=== PATIENT | male | born 1950 | race Caucasian/White ===

== ENCOUNTER 2020-12-13 00:15 | Observation (INO) | payer MEDICARE ==
[2020-12-13] MEDS ORDERED: MORPHINE 2 MG/1 ML INJ IV ONE (00:32)
--- NOTE | 2020-12-13 00:33 | Emergency Department Report ---
ED Chest Pain HPI - General Chief Complaint: Chest Pain Stated Complaint: CHEST PAIN PUI?: No Time Seen by Provider: 12/13/20 00:30 Source: patient, EMS Mode of arrival: Ambulatory Limitations: No Limitations - History of Present Illness Initial Comments: Patient is a 70-year-old male who presents emergency room with complaints of chest pain, shortness of breath. Patient states his chest pain is crushing patient states that it is in left chest. Patient dates nonradiating. Patient also complains of nausea and shortness of breath. Patient states his chest pain shortness breath better with rest and worse with exertion. Patient denies fever and chills. Patient denies cough. Patient denies recent travel. Patient denies recent international travel. Patient denies exposure to the novel coronavirus. Patient denies sick contacts. Patient denies fever and chills. Patient denies cough. Patient denies diarrhea. Patient denies coming in contact with anybody with symptoms of the novel coronavirus. Patient is a past medical history of hyperlipidemia and hypertension. Patient states he also had an SD in the past. MD Complaint: chest pain -: Sudden Onset: during rest Pain Location: left chest Severity: severe Severity scale (0 -10): 5 Quality: sharp Consistency: constant Improves With: rest Worsens With: exertion re: nausea, dyspnea, sense of impending doom. denies: vomting, diaphoresis Other Symptoms: denies: cough, fever, syncope, rash, acid taste in mouth, leg swelling, palpitations, burping Treatments Prior to Arrival: aspirin, nitroglycerin, oxygen Aspirin use within the Past 7 Days: (1) Yes - Related Data On Oral Contraceptives: No Home Medications Medication Instructions Recorded Confirmed Last Taken Allopurinol 100 mg PO QDAY 09/30/15 09/30/15 09/29/15 Amlodipine Besylate 10 mg PO QDAY 09/30/15 09/30/15 09/29/15 Aspirin EC [Halfprin EC] 81 mg PO QDAY 09/30/15 09/30/15 09/29/15 ISOSORBIDE MONOnitrate [Imdur ER] 30 mg PO DAILY 09/30/15 09/30/15 09/29/15 Insulin Aspart Protam & Aspart 35 - 45 units SUB-Q TID 03/30/16 03/30/16 03/29/16 [NovoLOG Mix 70-30 Flexpen] Insulin Glargine,Hum.rec.anlog 25 unit SUB-Q QHS 09/30/15 09/30/15 09/29/15 [Lantus Solostar] Nitroglycerin [Nitrostat] 0.4 mg SL Q5MIN PRN 09/30/15 09/30/15 Unknown Olmesartan (Nf) [Benicar] 20 mg PO QDAY 09/30/15 09/30/15 09/29/15 Rosuvastatin Calcium [Crestor] 10 mg PO QDAY 09/30/15 09/30/15 09/29/15 Allergies Allergy/AdvReac Type Severity Reaction Status Date / Time No Known Allergies Allergy Verified 12/13/20 00:40 Heart Score - HEART Score History: Moderately suspicious EKG: Non-specific Age: > 65 Risk factors: > 3 risk factors or hx of atherosclerotic disease Troponin: < normal limit HEART Score: 6 - EKG Read Time Time EKG Completed: 00:56 EKG Read Time: 00:59 ED Review of Systems ROS: Stated complaint: CHEST PAIN Other details as noted in HPI Constitutional: denies: chills, fever Eyes: denies: eye pain, eye discharge, vision change ENT: denies: ear pain, throat pain Respiratory: shortness of breath. denies: cough, wheezing Cardiovascular: as per HPI, chest pain. denies: palpitations Endocrine: no symptoms reported Gastrointestinal: denies: abdominal pain, nausea, diarrhea Genitourinary: denies: urgency, dysuria Musculoskeletal: denies: back pain, joint swelling, arthralgia Skin: denies: rash, lesions Neurological: denies: headache, weakness, paresthesias Psychiatric: denies: anxiety, depression Hematological/Lymphatic: denies: easy bleeding, easy bruising ED Past Medical Hx - Past Medical History Previous Medical History?: Yes Hx Hypertension: Yes Hx Heart Attack/AMI: Yes (1997, 2000) Hx Diabetes: Yes Hx Arthritis: Yes Hx Kidney Stones: Yes Hx Asthma: Yes Hx HIV: No - Surgical History Past Surgical History?: Yes Hx Coronary Stent: No Hx Cholecystectomy: Yes - Family History Family history: no significant - Social History Smoking Status: Former Smoker Substance Use Type: None - Medications Home Medications: Home Medications Medication Instructions Recorded Confirmed Last Taken Type Allopurinol 100 mg PO QDAY 09/30/15 09/30/15 09/29/15 History Amlodipine Besylate 10 mg PO QDAY 09/30/15 09/30/15 09/29/15 History Aspirin EC [Halfprin EC] 81 mg PO QDAY 09/30/15 09/30/15 09/29/15 History ISOSORBIDE MONOnitrate [Imdur ER] 30 mg PO DAILY 09/30/15 09/30/15 09/29/15 History Insulin Aspart Protam & Aspart 35 - 45 units SUB-Q TID 09/30/15 09/30/15 09/29/15 History [NovoLOG Mix 70-30 Flexpen] Insulin Glargine,Hum.rec.anlog 25 unit SUB-Q QHS 09/30/15 09/30/15 09/29/15 History [Lantus Solostar] Nitroglycerin [Nitrostat] 0.4 mg SL Q5MIN PRN 09/30/15 09/30/15 Unknown History Olmesartan (Nf) [Benicar] 20 mg PO QDAY 09/30/15 09/30/15 09/29/15 History Rosuvastatin Calcium [Crestor] 10 mg PO QDAY 09/30/15 09/30/15 09/29/15 History ED Physical Exam - General Limitations: No Limitations General appearance: alert, in no apparent distress - Head Head exam: Present: atraumatic, normocephalic - Eye Eye exam: Present: normal appearance - ENT ENT exam: Present: mucous membranes moist - Neck Neck exam: Present: normal inspection - Respiratory Respiratory exam: Present: normal lung sounds bilaterally. Absent: respiratory distress, wheezes, rales - Cardiovascular Cardiovascular Exam: Present: regular rate, normal rhythm. Absent: systolic murmur, diastolic murmur, rubs, gallop - GI/Abdominal GI/Abdominal exam: Present: soft, normal bowel sounds. Absent: distended, tenderness, guarding - Rectal Rectal exam: Present: deferred - Extremities Exam Extremities exam: Present: normal inspection - Back Exam Back exam: Present: normal inspection - Neurological Exam Neurological exam: Present: alert, oriented X3 - Psychiatric Psychiatric exam: Present: normal affect, normal mood - Skin Skin exam: Present: warm, dry, intact, normal color. Absent: rash ED Course Vital Signs 12/13/20 12/13/20 12/13/20 00:36 01:00 01:30 Temperature 98.8 F Pulse Rate 52 L 62 42 L Respiratory 12 21 15 Rate Blood Pressure 136/76 147/75 145/76 Blood Pressure 136/76 [Right] O2 Sat by Pulse 97 97 95 Oximetry 12/13/20 12/13/20 12/13/20 02:00 02:30 03:00 Temperature Pulse Rate 42 L 54 L 43 L Respiratory 14 24 15 Rate Blood Pressure 140/71 140/71 151/77 Blood Pressure [Right] O2 Sat by Pulse 94 98 98 Oximetry 12/13/20 12/13/20 12/13/20 03:30 04:00 04:30 Temperature Pulse Rate 39 L 42 L 46 L Respiratory 14 14 14 Rate Blood Pressure 145/85 156/84 142/83 Blood Pressure [Right] O2 Sat by Pulse 96 96 98 Oximetry 12/13/20 05:00 Temperature Pulse Rate 48 L Respiratory Rate Blood Pressure 142/83 Blood Pressure [Right] O2 Sat by Pulse 98 Oximetry - Reevaluation(s) Reevaluation #1: Patient states his pain is much better. Patient states is a 2 out of 10. Patient states that shortness of breath has resolved. Patient will have a CTA to rule out a PE. Patient agrees with plan of care. 12/13/20 02:13 Reevaluation #2: I discussed all results with patient. I discussed plan of care with patient. Patient agrees with plan of care and admission. Patient to be admitted to the hospitalist service. 12/13/20 04:13 - Consultations Consultation #1: Hospitalist consulted for admission. Hospitalist to admit patient. 12/13/20 04:13 ED Medical Decision Making - Lab Data Result diagrams: 12/13/20 00:34 12/13/20 00:34 - EKG Data -: EKG Interpreted by Me EKG shows normal: sinus rhythm, axis, intervals, QRS complexes, ST-T waves Rate: bradycardia - Radiology Data Radiology results: report reviewed, image reviewed interpreted by me: Chest x-ray: No pneumonia, no pneumothorax, no foreign body, no osseous findings, no acute findings CTA results are reviewed and shows no acute findings and no PE. - Medical Decision Making Patient is a 70-year-old male presents emergency room with complaints of chest pain, shortness of breath and diaphoresis and nausea. Patient has a past history of hypertension, hyperlipidemia and SD. Patient is high risk for ACS. Patient EKG shows a normal sinus bradycardia with no ST changes. Patient's chest x-ray shows no acute findings. I personally reviewed the EKG and a chest x-ray. Patient had labs done which were essentially unremarkable save for renal insufficiency and elevated D-dimer. Initial troponin was high normal limit and the repeat came back as elevated. Patient's renal function was not contraindicated for his CT dye. Patient benefits outweigh the risk for CT dye. Patient CTA was done to rule out a PE since the D-dimer was elevated. Patient's CTA was negative for acute findings and PE. Patient was placed on a heparin drip for NSTEMI. Patient admitted to the hospital service for further evaluation treatment and rule out ACS. Critical care time documented due to the multiple reassessments, prolonged time at the bedside, interpretation of diagnostics and labs. - Differential Diagnosis PE, ACS, chest pain, shortness of breath, diaphoresis, nausea Critical Care Time: Yes Critical care time in (mins) excluding proc time.: 35 Critical care attestation.: If time is entered above; I have spent that time in minutes in the direct care of this critically ill patient, excluding procedure time. Critical Care Time: 35 minutes ED Disposition Clinical Impression: SOB (shortness of breath), Renal insufficiency, Elevated d-dimer, NSTEMI (non- ST elevated myocardial infarction) Chest pain Qualifiers: Chest pain type: unspecified Qualified Code(s): R07.9 - Chest pain, unspecified Disposition: OP ADMIT IP TO THIS HOSP Is pt being admited?: Yes Does the pt Need Aspirin: No Condition: Critical Time of Disposition: 04:16
[2020-12-13 00:54] LABS: Basophils % (Auto) 0.5 % (0.0-1.8); Eosinophils # (Auto) 0.3 K/mm3 (0.0-0.4); Eosinophils % (Auto) 6.6 % (0.0-4.3); Hematocrit 37.3 % (35.5-45.6); Hemoglobin 12.6 gm/dl (11.8-15.2); Lymphocytes % (Auto) 21.1 % (13.4-35.0); Mean Corpuscular HGB Conc 34 % (32-34); Mean Corpuscular Volume 86 fl (84-94); Monocytes # (Auto) 0.6 K/mm3 (0.0-0.8); Monocytes % (Auto) 12.9 % (0.0-7.3); Platelet Count 112 K/mm3 (140-440); Red Blood Count 4.34 M/mm3 (3.65-5.03); Red Cell Distribution Width 16.7 % (13.2-15.2)
[2020-12-13 01:06] LABS: INR 0.98 (0.87-1.13); Partial Thromboplastin Time 27.6 Sec. (24.2-36.6)
[2020-12-13 01:21] LABS: Albumin 3.2 g/dL (3.9-5); Calcium 9.1 mg/dL (8.4-10.2)
--- NOTE | 2020-12-13 01:51 | XRay Report ---
CHEST 1 VIEW, 12/13/2020 12:29 AM CLINICAL INFORMATION/INDICATION: Chest pain COMPARISON: None. FINDINGS: SUPPORT DEVICES: None. HEART: The cardiac silhouette is normal in size. LUNGS/PLEURA: The lungs are clear of focal airspace disease or significant pleural effusion. ADDITIONAL FINDINGS: No additional acute findings. IMPRESSION: 1. No evidence of acute cardiopulmonary process. Signer Name: Keri Daugherty MD Signed: 12/13/2020 1:47 AM Workstation Name: [id number]
--- NOTE | 2020-12-13 04:07 | Cat Scan Report ---
CTA CHEST WITH IV CONTRAST INDICATION: Shortness of breath. TECHNIQUE: Axial CT images were obtained through the chest after injection of IV contrast. Coronal oblique 2-D reconstruction images were produced. 3 plane MIP reconstruction images were produced at an [employer] workstation. All CTs at this facility utilize dose reduction techniques including automated expos ure control, iterative reconstruction and weight based dosing when appropriate to reduce patient radi ation dose to as low as reasonable achievable. COMPARISON: Chest radiograph, 12/13/2020 FINDINGS: No filling defects are visualized within the central or segmental pulmonary arteries to suggest pulmo nary embolism. The heart is normal in size. The thoracic aorta is normal in caliber. Evaluation of th e lung parenchyma demonstrates no focal airspace disease or pleural effusion. Limited imaging of the upper abdomen demonstrates no evidence of acute abnormality. There is a diffus robi nodular contour of the liver. The gallbladder has been removed. Multiple upper abdominal varices are noted. Bones and soft tissues: Evaluation of bony and soft tissue structures demonstrates no acute abnormali ty. IMPRESSION: 1. No evidence of pulmonary embolism or acute parenchymal process. 2. 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 Signer Name: Keri Daugherty MD Signed: 12/13/2020 4:02 AM Workstation Name: [id number]
[2020-12-13] MEDS ORDERED: HEPARIN 10,000 UNITS/10 ML VIAL IV ONE ×2 (04:19→10:00)
--- NOTE | 2020-12-13 04:28 | History and Physical Report ---
History of Present Illness Date of examination: 12/13/20 Date of admission: 12/13/20 Chief complaint: chest pain History of present illness: Patient is a 70-year-old male who presents emergency room with complaints of chest pain, shortness of breath. Patient states his chest pain is crushing patient states that it is in left chest. Patient dates nonradiating. Patient also complains of nausea and shortness of breath. Patient states his chest pain shortness breath better with rest and worse with exertion. Patient denies fever and chills. Patient denies cough. ED work-up WBC 4.9, hemoglobin 12.6, platelets 112, D-dimer 50286.89, creatinine 1.5, serum glucose 235, troponin 0 0.030, cholesterol 224. Patient seen in ED at bedside. Patient alert oriented x3. Patient denies tobacco use and illicit drug use but admits alcohol use. Patient reports chest pain pain level 6/10. CTA of the chest done to rule out pulmonary embolismnegative for PE. Chest x- ray done no acute findings. Due to elevated troponin patient is started on heparin drip. Bilateral leg ultrasound ordered. Reviewed lab, medication record, and vital signs. Past History Past Medical History: diabetes, hypertension, hyperlipidemia Social history: lives with family, alcohol abuse Family history: hypertension Medications and Allergies Allergies Allergy/AdvReac Type Severity Reaction Status Date / Time No Known Allergies Allergy Verified 12/13/20 00:40 Home Medications Medication Instructions Recorded Confirmed Last Taken Type Allopurinol 100 mg PO QDAY 09/30/15 09/30/15 09/29/15 History Amlodipine Besylate 10 mg PO QDAY 09/30/15 09/30/15 09/29/15 History Aspirin EC [Halfprin EC] 81 mg PO QDAY 09/30/15 09/30/15 09/29/15 History ISOSORBIDE MONOnitrate [Imdur ER] 30 mg PO DAILY 09/30/15 09/30/15 09/29/15 History Insulin Aspart Protam & Aspart 35 - 45 units SUB-Q TID 09/30/15 09/30/15 0 09/29/15 History [NovoLOG Mix 70-30 Flexpen] Insulin Glargine,Hum.rec.anlog 25 unit SUB-Q QHS 09/30/15 09/30/15 09/29/15 History [Lantus Solostar] Nitroglycerin [Nitrostat] 0.4 mg SL Q5MIN PRN 09/30/15 09/30/15 Unknown History Olmesartan (Nf) [Benicar] 20 mg PO QDAY 09/30/15 09/30/15 09/29/15 History Rosuvastatin Calcium [Crestor] 10 mg PO QDAY 09/30/15 09/30/15 09/29/15 History Active Meds: Active Medications Heparin Sodium/Sodium Chloride (Heparin/ 0.45% Nacl-25,000 Unit/500 Ml) 25,000 unit in 500 mls @ 32.659 mls/hr IV TITRATE ARUN; Protocol Review of Systems Ears, nose, mouth and throat: no epistaxis, no bleeding gums Cardiovascular: chest pain Respiratory: no wheezing Gastrointestinal: abdominal pain Rectal: no itching, no hemorrhoids Integumentary: no rash, no pruritis Neurological: no head injury, no transient paralysis Psychiatric: no suicidal ideation, no hallucinations Hematologic/Lymphatic: no easy bruising, no easy bleeding Allergic/Immunologic: no urticaria Exam - Constitutional Vitals: Temp Pulse Resp BP Pulse Ox 98.8 F 42 L 14 156/84 96 12/13/20 00:36 12/13/20 04:00 12/13/20 04:00 12/13/20 04:00 12/13/20 04:00 General appearance: Present: mild distress, obese - EENT Eyes: Present: PERRL ENT: hearing intact, clear oral mucosa - Neck Neck: Present: supple, normal ROM - Respiratory Respiratory effort: normal Respiratory: bilateral: CTA - Cardiovascular Heart rate: 42 Heart Sounds: Present: S1 & S2. Absent: rub, click - Extremities Extremities: pulses symmetrical, No edema Peripheral Pulses: within normal limits - Abdominal General gastrointestinal: Present: soft, non-tender, non-distended, normal bowel sounds Male genitourinary: Present: normal - Integumentary Integumentary: Present: clear, warm, dry - Musculoskeletal Musculoskeletal: gait normal, strength equal bilaterally - Psychiatric Psychiatric: appropriate mood/affect, intact judgment & insight, cooperative - Neurologic Neurologic: CNII-XII intact, moves all extremities - Allied Health Allied health notes reviewed: nursing HEART Score - HEART Score EKG: Non-specific Age: > 65 Risk factors: > 3 risk factors or hx of atherosclerotic disease Troponin: Troponin T 0.030 ng/mL (0.00-0.029) H 12/13/20 03:38 Troponin: < normal limit Results - Labs CBC & Chem 7: 12/13/20 00:34 12/13/20 00:34 Labs: Abnormal lab results 12/13/20 12/13/20 12/13/20 Range/Units 00:34 00:34 00:34 RDW 16.7 H (13.2-15.2) % Plt Count 112 L (140-440) K/mm3 [place] % (Auto) 12.9 H (0.0-7.3) % Eos % (Auto) 6.6 H (0.0-4.3) % Lymph # (Auto) 1.0 L (1.2-5.4) K/mm3 D-Dimer 1073.89 H (0-234) ng/mlDDU BUN 31 H (9-20) mg/dL Creatinine 1.5 H (0.8-1.3) mg/dL Glucose 235 H (75-100) mg/dL Troponin T (0.00-0.029) ng/mL Total Protein 6.1 L (6.3-8.2) g/dL Albumin 3.2 L (3.9-5) g/dL 12/13/20 Range/Units 03:38 RDW (13.2-15.2) % Plt Count (140-440) K/mm3 [place] % (Auto) (0.0-7.3) % Eos % (Auto) (0.0-4.3) % Lymph # (Auto) (1.2-5.4) K/mm3 D-Dimer (0-234) ng/mlDDU BUN (9-20) mg/dL Creatinine (0.8-1.3) mg/dL Glucose (75-100) mg/dL Troponin T 0.030 H (0.00-0.029) ng/mL Total Protein (6.3-8.2) g/dL Albumin (3.9-5) g/dL Assessment and Plan - Patient Problems (1) NSTEMI (non-ST elevated myocardial infarction) Current Visit: Yes Status: Acute Plan to address problem: Continue heparin drip Echocardiogram and consult cardiology Aspirin, statin, beta-david, oxygen supplements if needed (2) Chest pain Current Visit: Yes Status: Acute Qualifiers: Chest pain type: unspecified Qualified Code(s): R07.9 - Chest pain, unspecified Plan to address problem: Sublingual nitrate as needed echo and follow-up with results Chest x-ray done no acute finding (3) Elevated d-dimer Current Visit: Yes Status: Acute Plan to address problem: Questionable course CT of the chest to rule out PEnegative Check bilateral leg ultrasound. (4) Acute kidney injury Current Visit: Yes Status: Acute Plan to address problem: Monitor kidney function Avoid nephrotoxic drugs including nonsteroidal anti-inflammatory agent and contrast media Check renal ultrasound. Urine sodium and osmolarity (5) Essential hypertension Current Visit: Yes Status: Acute Plan to address problem: The blood pressure As needed hydralazine Resume home antihypertensive (6) Diabetes Current Visit: Yes Status: Acute Plan to address problem: Check hemoglobin A1c Monitor blood sugar with sliding scale protocol Resume home antihyperglycemics (7) Hyperlipidemia Current Visit: Yes Status: Acute Plan to address problem: resume home statin (8) Thrombocytopenia Current Visit: Yes Status: Acute Plan to address problem: Likely secondary to alcohol use Monitor platelet level Discussed alcohol use cessation with patient (9) Alcohol use Current Visit: Yes Status: Acute Plan to address problem: Patient admits alcohol use Discussed complication of alcohol use including cirrhosis of the liver and liver CA Patient voiced understanding (10) DVT prophylaxis Current Visit: Yes Status: Acute Plan to address problem: on heparin gtt
[2020-12-13] MEDS ORDERED: traMADol 50 MG TAB PO PRN (04:35)
[2020-12-13] MEDS ORDERED: traZODone 50 MG TAB PO PRN (04:35)
[2020-12-13] MEDS ORDERED: ALUM-MAG HYDROXIDE-SIMETHICONE 200-200-20MG/5ML ORAL LIQD 30 ML PO PRN (04:44)
[2020-12-13] MEDS ORDERED: hydrALAZINE 20 MG/1 ML INJ IV PRN ×2 (04:44→05:00)
[2020-12-13] MEDS ORDERED: SENNOSIDES 8.6 MG TAB PO PRN (04:44)
[2020-12-13] MEDS ORDERED: ONDANSETRON 4 MG/2 ML INJ IV PRN (04:44)
[2020-12-13] MEDS ORDERED: MAGNESIUM HYDROXIDE (MOM) ORAL LIQD UDC PO PRN (04:44)
[2020-12-13] MEDS ORDERED: ASPIRIN EC 81 MG TAB PO ONE (04:45)
[2020-12-13] MEDS ORDERED: carvediloL 3.125 MG TAB PO ONE (04:45)
[2020-12-13 04:49] LABS: Chol/HDL Ratio 4.22 %
[2020-12-13] MEDS ORDERED: amLODIPine 5 MG TAB PO ONE (04:49)
[2020-12-13 06:57] LABS: Osmolality,Urine 660 Mosm/kg
--- NOTE | 2020-12-13 08:40 | Vascular Lab Report ---
DUPLEX DOPPLER LOWER EXTREMITY VEINS, BILATERAL INDICATION / CLINICAL INFORMATION: r/o dvt. TECHNIQUE: Duplex doppler imaging was performed through the veins of both lower extremities using venous noman gunnar and other maneuvers. COMPARISON: None available. FINDINGS: RIGHT COMMON FEMORAL VEIN: Negative. RIGHT FEMORAL VEIN: Negative. RIGHT POPLITEAL VEIN: Negative. RIGHT CALF VEINS: Negative. LEFT COMMON FEMORAL VEIN: Negative. LEFT FEMORAL VEIN: Negative. LEFT POPLITEAL VEIN: Negative. LEFT CALF VEINS: Negative. ADDITIONAL FINDINGS: None. IMPRESSION: 1. No sonographic evidence for DVT in either lower extremity. Signer Name: Alexis Vergara MD Signed: 12/13/2020 8:36 AM Workstation Name: [id number]
--- NOTE | 2020-12-13 08:47 | Ultrasound Report ---
ULTRASOUND RENAL INDICATION / CLINICAL INFORMATION: STEFANO. COMPARISON: None available. FINDINGS: RIGHT KIDNEY: Length = 8.6 cm. - Echogenicity: Normal. - Cortical Thickness: Normal. Note is made of considerable cortical lobulation possibly representing some scarring from prior injury. - Hydronephrosis: None. - Cyst or mass: No significant abnormality. - Stones: None seen. LEFT KIDNEY: Length = 12.0 cm. - Echogenicity: Normal. - Cortical Thickness: Normal. - Hydronephrosis: None. - Cyst or mass: 2.8 cm simple renal cyst at the inferior pole - Stones: None seen. URINARY BLADDER: No significant abnormality. FREE FLUID: None. ADDITIONAL FINDINGS: None. IMPRESSION: 1. No obstructive uropathy or sonographic evidence of significant medical renal disease. 2. Small left-sided simple renal cyst. Signer Name: Alexis Vergara MD Signed: 12/13/2020 8:43 AM Workstation Name: [id number]
[2020-12-13] MEDS: INSULIN LISPRO 100 UNIT/ML SUB-Q SCH ×4 (09:00→21:22)
[2020-12-13] MEDS ORDERED: NITROGLYCERIN 0.4 MG TAB SUBL SL PRN (09:19)
[2020-12-13] MEDS ORDERED: MORPHINE 2 MG/1 ML INJ IV PRN (09:22)
[2020-12-13] MEDS: FAMOTIDINE 20 MG/2 ML INJ IV SCH ×2 (09:43→21:22)
[2020-12-13] MEDS: INSULIN NPH/REGULAR 70/30 INJ SUB-Q SCH ×2 (09:54→16:31)
[2020-12-13] MEDS: allopurinoL 100 MG TAB PO SCH (10:01)
[2020-12-13] MEDS: amLODIPine 10 MG TAB PO SCH (10:01)
[2020-12-13] MEDS: HEPARIN/ 0.45% NACL DRIP 25,000 UNIT/500 ML BAG IV SCH (10:03)
--- NOTE | 2020-12-13 11:52 | Consultation ---
History of Present Illness Consult date: 12/13/20 Requesting physician: JOSE MEEKS Consult reason: chest pain History of present illness: Patient is a 70-year-old Welsh-speaking gentleman who is currently admitted to the hospital for chest pain. Patient reports no prior heart problems. Has a history of alcohol abuse. He presented to the hospital with gradual onset of substernal chest pain with no particular aggravating or relieving factors. Reports no radiation of pain. Reports since he has been in the hospital his pain is improved but still has a vague 2 out of 10 chest pain. As indicated above reports no prior cardiac problems. Reports no dizziness palpitations or lightheadedness. Patient's EKG was consistent with bradycardia and Wenckebach. Past History Past Medical History: diabetes, hypertension, hyperlipidemia Social history: lives with family, alcohol abuse Family history: hypertension Medications and Allergies Allergies Allergy/AdvReac Type Severity Reaction Status Date / Time No Known Allergies Allergy Verified 12/13/20 00:40 Home Medications Medication Instructions Recorded Confirmed Last Taken Type Allopurinol 100 mg PO QDAY 09/30/15 09/30/15 09/29/15 History Amlodipine Besylate 10 mg PO QDAY 09/30/15 09/30/15 09/29/15 History Aspirin EC [Halfprin EC] 81 mg PO QDAY 09/30/15 09/30/15 09/29/15 History ISOSORBIDE MONOnitrate [Imdur ER] 30 mg PO DAILY 09/30/15 09/30/15 09/29/15 History Insulin Aspart Protam & Aspart 35 - 45 units SUB-Q TID 09/30/15 09/30/15 09/29/15 History [NovoLOG Mix 70-30 Flexpen] Insulin Glargine,Hum.rec.anlog 25 unit SUB-Q QHS 09/30/15 09/30/15 09/29/15 History [Lantus Solostar] Nitroglycerin [Nitrostat] 0.4 mg SL Q5MIN PRN 09/30/15 09/30/15 Unknown History Olmesartan (Nf) [Benicar] 20 mg PO QDAY 09/30/15 09/30/15 09/29/15 History Rosuvastatin Calcium [Crestor] 10 mg PO QDAY 09/30/15 09/30/15 09/29/15 History Active Meds: Active Medications Al Hydrox/Mg Hydrox/Simethicone (Alum-Mag Hydroxide-Simethicone 402-979-89mw/5ml Oral Liqd 30 Ml) 30 ml PO Q4H PRN PRN Reason: Indigestion Allopurinol (Allopurinol 100 Mg Tab) 100 mg PO QDAY [facility] Last Admin: 12/13/20 10:01 Dose: 100 mg Documented by: Amlodipine Besylate (Amlodipine 10 Mg Tab) 10 mg PO QDAY [facility] Last Admin: 12/13/20 10:01 Dose: 10 mg Documented by: Atorvastatin Calcium (Atorvastatin 40 Mg Tab) 40 mg PO QHS [facility] Famotidine (Famotidine 20 Mg/2 Ml Inj) 20 mg IV BID [facility] Last Admin: 12/13/20 09:43 Dose: 20 mg Documented by: Hydralazine HCl (Hydralazine 20 Mg/1 Ml Inj) 5 mg IV Q4H PRN PRN Reason: Hypertension Heparin Sodium/Sodium Chloride (Heparin/ 0.45% Nacl-25,000 Unit/500 Ml) 25,000 unit in 500 mls @ 20 mls/hr IV TITRATE [facility]; Protocol Last Admin: 12/13/20 10:03 Dose: 1,000 units/hr, 20 mls/hr Documented by: Insulin Human Isoph/Insulin Regular (Insulin Nph/Regular 70/30 Inj) 20 unit SUB-Q BIDDIAB [facility] Last Admin: 12/13/20 09:54 Dose: Not Given Documented by: Insulin Human Lispro (Insulin Lispro 100 Unit/Ml) 0 unit SUB-Q ACHS [facility]; Protocol Last Admin: 12/13/20 09:00 Dose: 1 unit Documented by: Magnesium Hydroxide (Magnesium Hydroxide (Mom) Oral Liqd Udc) 30 ml PO Q4H PRN PRN Reason: Constipation Morphine Sulfate (Morphine 2 Mg/1 Ml Inj) 2 mg IV Q3H PRN PRN Reason: Pain, Moderate (4-6) Nitroglycerin (Nitroglycerin 0.4 Mg Tab Subl) 0.4 mg SL Q5MIN PRN PRN Reason: Chest Pain Ondansetron HCl (Ondansetron 4 Mg/2 Ml Inj) 4 mg IV Q8H PRN PRN Reason: Nausea And Vomiting Senna (Sennosides 8.6 Mg Tab) 8.6 mg PO Q12HR PRN PRN Reason: Constipation Trazodone HCl (Trazodone 50 Mg Tab) 50 mg PO QHS PRN PRN Reason: Insomnia Review of Systems All systems: negative (As mentioned in the H&P) Physical Examination Vital Signs Temp Pulse Resp BP Pulse Ox 98.8 F 52 L 12 136/76 97 12/13/20 00:36 12/13/20 00:36 12/13/20 00:36 12/13/20 00:36 12/13/20 00:36 Narrative exam: Moderately obese HEENT: Positive: Normocephaly Neck: Positive: neck supple Cardiac: Positive: Reg Rate and Rhythm Lungs: Positive: clear to auscultation Neuro: Positive: Grossly Intact Abdomen: Positive: Unremarkable Extremities: Present: +1 Edema (Bilaterally) Results 12/13/20 00:34 12/13/20 00:34 Cardiac Enzymes 12/13/20 Range/Units 00:34 AST 30 (5-40) units/L Coagulation 12/13/20 Range/Units 00:34 PT 13.6 (12.2-14.9) Sec. INR 0.98 (0.87-1.13) APTT 27.6 (24.2-36.6) Sec. Lipids 12/13/20 Range/Units 03:38 Triglycerides 183 H (2-149) mg/dL Cholesterol 224 H (50-199) mg/dL HDL Cholesterol 53 (40-59) mg/dL Cholesterol/HDL Ratio 4.22 % CBC 12/13/20 Range/Units 00:34 WBC 4.9 (4.5-11.0) K/mm3 RBC 4.34 (3.65-5.03) M/mm3 Hgb 12.6 (11.8-15.2) gm/dl Hct 37.3 (35.5-45.6) % Plt Count 112 L (140-440) K/mm3 Lymph # (Auto) 1.0 L (1.2-5.4) K/mm3 [place] # (Auto) 0.6 (0.0-0.8) K/mm3 Eos # (Auto) 0.3 (0.0-0.4) K/mm3 Baso # (Auto) 0.0 (0.0-0.1) K/mm3 Comprehensive Metabolic Panel 12/13/20 Range/Units 00:34 Sodium 139 (137-145) mmol/L Potassium 4.5 (3.6-5.0) mmol/L Chloride 104.9 (98-107) mmol/L Carbon Dioxide 24 (22-30) mmol/L BUN 31 H (9-20) mg/dL Creatinine 1.5 H (0.8-1.3) mg/dL Glucose 235 H (75-100) mg/dL Calcium 9.1 (8.4-10.2) mg/dL AST 30 (5-40) units/L ALT 32 (7-56) units/L Alkaline Phosphatase 111 (35-129) units/L Total Protein 6.1 L (6.3-8.2) g/dL Albumin 3.2 L (3.9-5) g/dL EKG interpretations - Telemetry EKG Rhythm: Sinus Rhythm (Sinus bradycardia with gradual MA prolongation and dropped beats suggestive of Wenckebach) Assessment and Plan Impression 1. Chest pain concerning for crescendo angina 2. Borderline elevated troponin in the setting of renal failure no significant rise in enzymes suggestive of non-ST elevation [place] 3. Mobitz type I Wenckebach patient asymptomatic 4. Bradycardia 5. Renal failure 6. Chronic thrombocytopenia 7. Diabetes mellitus 8. Alcohol abuse 9. Family history of coronary artery disease Plan 1. Agree with aspirin and heparin 2. Trend troponins 3. High intensity statins 4. No beta-david secondary to Mobitz type I second-degree AV block 5. 2D echo 6. Likely left heart cath once creatinine is stable
--- NOTE | 2020-12-13 15:46 | Event Note ---
Date: 12/13/20 This is the second visit after midnight Patient seen and examined Vitals noted and stable Patient does complains of shortness of breath but now denies any chest pain +ve breath sounds auscultated bilaterally, S1-S2 positive, bowel sounds positive, +ve leg edema Trend troponins Cont High intensity statins, aspirin, heparin drip No beta-david secondary to Mobitz type I second-degree AV block follow 2D echo, plan for left heart cath once creatinine is stable It took me about 25 minutes to reevaluate and reasses this patient, discussed with RN/CM, review medical documents, lab results, imaging, medication list and placing order.
[2020-12-14 06:03] LABS: Calcium 8.9 mg/dL (8.4-10.2)
[2020-12-14] MEDS: INSULIN LISPRO 100 UNIT/ML SUB-Q SCH ×4 (09:49→22:35)
[2020-12-14] MEDS: INSULIN NPH/REGULAR 70/30 INJ SUB-Q SCH ×2 (09:59→17:46)
[2020-12-14] MEDS: allopurinoL 100 MG TAB PO SCH (10:05)
[2020-12-14] MEDS: amLODIPine 10 MG TAB PO SCH (10:06)
[2020-12-14] MEDS: FAMOTIDINE 20 MG/2 ML INJ IV SCH (10:07)
--- NOTE | 2020-12-14 12:00 | Progress Note ---
Assessment and Plan - Patient Problems (1) Chest pain Current Visit: Yes Status: Acute Qualifiers: Chest pain type: unspecified Qualified Code(s): R07.9 - Chest pain, unspecified Plan to address problem: Chest pain is atypical, poorly characterized. There is a borderline troponin level elevation, and patient was recommended to undergo diagnostic coronary angiography. Patient's creatinine has now normalized, we will schedule cardiac catheterization for tomorrow morning. Subjective Date of service: 12/14/20 Interval history: Patient is comfortable, had no cardiac complaints. He denies any further chest pain. It would be recalled that this patient had a previous cardiac catheterization just 5 years ago in 2016, which reported no significant coronary artery disease, and normal to hyperdynamic left ventricular systolic function with ejection fraction estimated at 60 to 70% at that time. On this presentation, he has been recommended to undergo repeat cardiac catheterization. His creatinine on presentation was 1.5, and has currently normalized to 1.3. Objective Vital Signs Temp Pulse Pulse Resp BP BP Pulse Ox 12/14/20 10:20 97.6 F 59 L 138/80 12/14/20 10:06 53 L 138/90 12/14/20 09:49 97 12/14/20 04:10 97.7 F 58 L 18 145/78 92 12/13/20 23:22 98.0 F 55 L 20 123/66 97 12/13/20 23:00 43 L 18 98 12/13/20 19:22 97.5 F L 50 L 20 131/65 96 12/13/20 19:00 43 L 12/13/20 15:55 98.4 F 46 L 18 135/74 95 12/13/20 12:04 97.4 F L 44 L 18 130/77 96 - Physical Examination General: No Apparent Distress HEENT: Positive: Normocephaly Neck: Positive: neck supple Cardiac: Positive: Reg Rate and Rhythm Lungs: Positive: Decreased Breath Sounds Neuro: Positive: Grossly Intact Abdomen: Positive: Soft Skin: Positive: Clear Extremities: Absent: edema - Labs and Meds Comprehensive Metabolic Panel 12/14/20 Range/Units 03:28 Sodium 140 (137-145) mmol/L Potassium 4.4 (3.6-5.0) mmol/L Chloride 106.7 (98-107) mmol/L Carbon Dioxide 22 (22-30) mmol/L BUN 27 H (9-20) mg/dL Creatinine 1.3 (0.8-1.3) mg/dL Glucose 122 H (75-100) mg/dL Calcium 8.9 (8.4-10.2) mg/dL
[2020-12-14] MEDS ORDERED: SODIUM CHLORIDE 0.9% 500 ML 500 ML IV SCH (13:00)
--- NOTE | 2020-12-14 16:47 | Progress Note ---
Assessment and Plan Patient is a 70-year-old male who presents emergency room with complaints of chest pain, shortness of breath. ED work-up WBC 4.9, hemoglobin 12.6, platelets 112, D-dimer 78482.89, creatinine 1.5, serum glucose 235, troponin 0 0.030, cholesterol 224. CTA of the chest done to rule out pulmonary embolismnegative for PE. Chest x-ray done no acute findings. Due to elevated troponin patient is started on heparin drip. Bilateral leg ultrasound ordered. Admitted to hospital for further evaluation and management. A/P --NSTEMI Continue heparin drip, aspirin, statin Plan for cardiac cath tomorrow Cardiology following --Chest pain Chest pain is atypical, poorly characterized. There is a borderline troponin level elevation, and patient was recommended to undergo diagnostic coronary angiography. --Mobitz type I second-degree AV block Hold any beta-david, follow clinically --Elevated D-dimer, CTA chest negative for PE, lower extremity Doppler negative for DVT --STEFANO likely due to vasomotor nephropathy Monitor kidney function Avoid nephrotoxic drugs including nonsteroidal anti-inflammatory agent and contrast media Renal function now stable --Essential hypertension As needed hydralazine Resume home antihypertensive Hold beta-david for AV block --Diabetes mellitus type 2 Check hemoglobin A1c Monitor blood sugar with sliding scale protocol Resume home antihyperglycemics --Hyperlipidemia, continue statin --Thrombocytopenia, monitor CBC Likely due to chronic alcohol abuse --History of alcohol abuse Discussed complication of alcohol use including cirrhosis of the liver and liver CA Patient voiced understanding --DVT prophylaxis, on heparin GGT Daily clinical course: 12/14/20: Creatinine stable, continue gentle IV fluid hydration and heparin drip. Plan for cardiac cath tomorrow. Cardiology following. Subjective Date of service: 12/14/20 Interval history: Patient seen and examined. Medical records and medication list reviewed. No acute event overnight noted by the RN. Patient denies any chest pain or difficulty breathing. Patient is tolerating diet. Discussed plan of care at bedside with patient. Objective - Exam Narrative Exam: GENERAL: Morbidly obese elderly male lying on bed appeared to be in no discomfort. HEENT: Normocephalic. Atraumatic. No conjunctival congestion or icterus. Patient has moist mucous membranes. NECK: Supple. Trachea midline. CHEST/LUNGS: Clear to auscultated bilaterally, breathing nonlabored. No wheezes crackles or rhonchi. HEART/CARDIOVASCULAR: Regular in rate and rhythm. S1 and S2 positive. ABDOMEN: Abdomen is soft, nontender. Patient has normal bowel sounds. SKIN: There is no rash. Warm and dry. NEURO: No focal motor deficit. Follows command. MUSCULOSKELETAL: No joint effusion or tenderness. EXTRIMITY: No edema, no cyanosis or clubbing. PSYCH: Cooperative. - Constitutional Vitals: Vital Signs - 12hr 12/14/20 12/14/20 12/14/20 09:49 10:06 10:20 Temperature 97.6 F Pulse Rate 53 L 59 L Blood Pressure 138/90 Blood Pressure 138/80 [Right] O2 Sat by Pulse 97 Oximetry - Labs CBC & Chem 7: 12/13/20 00:34 12/14/20 03:28 Labs: Abnormal lab results 12/13/20 12/13/20 12/13/20 Range/Units 15:52 21:16 23:03 Heparin Anti-Xa Level 0.28 L (0.3-0.7) U.I./ml BUN (9-20) mg/dL Glucose (75-100) mg/dL POC Glucose 193 H 162 H (70-105) mg/dL 12/14/20 12/14/20 12/14/20 Range/Units 03:28 09:58 12:07 Heparin Anti-Xa Level (0.3-0.7) U.I./ml BUN 27 H (9-20) mg/dL Glucose 122 H (75-100) mg/dL POC Glucose 191 H 174 H (70-105) mg/dL HEART Score - HEART Score EKG: Non-specific Age: > 65 Risk factors: > 3 risk factors or hx of atherosclerotic disease Troponin: Troponin T 0.032 ng/mL (0.00-0.029) H 12/13/20 13:00 Troponin: < normal limit
[2020-12-14] MEDS: FAMOTIDINE 20 MG TAB PO SCH (21:42)
[2020-12-14] MEDS: GABAPENTIN 300 MG CAP PO SCH (21:42)
[2020-12-15 04:58] LABS: Hematocrit 37.8 % (35.5-45.6); Hemoglobin 12.5 gm/dl (11.8-15.2)
[2020-12-15 05:43] LABS: BUN/Creatinine Ratio 21; Blood Urea Nitrogen 25 mg/dL (9-20); Calcium 8.8 mg/dL (8.4-10.2); Hemolysis Index 4
[2020-12-15 07:14] VITALS: BP 127/71
--- NOTE | 2020-12-15 08:32 | Progress Note ---
Assessment and Plan Assessment and plan: Patient is a 70-year-old male who presents emergency room with complaints of chest pain, shortness of breath. ED work-up WBC 4.9, hemoglobin 12.6, platelets 112, D-dimer 98626.89, creatinine 1.5, serum glucose 235, troponin 0 0.030, cholesterol 224. CTA of the chest done to rule out pulmonary embolismnegative for PE. Chest x-ray done no acute findings. Due to elevated troponin patient is started on heparin drip. Bilateral leg ultrasound ordered. Admitted to hospital for further evaluation and management. A/P --NSTEMI Continue heparin drip, aspirin, statin Plan for cardiac cath tomorrow Cardiology following --Chest pain Chest pain is atypical, poorly characterized. There is a borderline troponin level elevation, and patient was recommended to undergo diagnostic coronary angiography. --Mobitz type I second-degree AV block Hold any beta-david, follow clinically --Elevated D-dimer, CTA chest negative for PE, lower extremity Doppler negative for DVT --STEFANO likely due to vasomotor nephropathy Monitor kidney function Avoid nephrotoxic drugs including nonsteroidal anti-inflammatory agent and contrast media Renal function now stable --Essential hypertension As needed hydralazine Resume home antihypertensive Hold beta-david for AV block --Diabetes mellitus type 2 Check hemoglobin A1c Monitor blood sugar with sliding scale protocol Resume home antihyperglycemics --Hyperlipidemia, continue statin --Thrombocytopenia, monitor CBC Likely due to chronic alcohol abuse --History of alcohol abuse Discussed complication of alcohol use including cirrhosis of the liver and liver CA Patient voiced understanding --DVT prophylaxis, on heparin GGT Daily clinical course: 12/14/20: Creatinine stable, continue gentle IV fluid hydration and heparin drip. Plan for cardiac cath tomorrow. Cardiology following. 12/15/2020; patient will have cardiac cath today. Cardiology is following. Patient can be discharged once cleared by cardiology. History Interval history: Patient was seen and evaluated this morning Patient denied any chest pain today Hospitalist Physical - Physical exam Narrative exam: Not in cardiopulmonary distress. The patient appeared well nourished and normally developed. Vital signs as documented. Head exam is unremarkable. No scleral icterus . Neck is without jugular venous distension, thyromegaly, or carotid bruits. Lungs are clear to auscultation. Cardiac exam reveals regular rate and Rhythm. Abdominal exam reveals normal bowel sounds, nontender, no organomegaly. Extremities are nonedematous and both femoral and pedal pulses are normal. [employer]ER: Alert and oriented 3. No focal weakness. - Constitutional Vitals: Temp Pulse Resp BP Pulse Ox 98.2 F 60 18 127/71 97 12/15/20 06:40 12/15/20 06:40 12/15/20 06:40 12/15/20 06:40 12/15/20 06:40 General appearance: Present: mild distress, obese HEART Score - HEART Score EKG: Non-specific Age: > 65 Risk factors: > 3 risk factors or hx of atherosclerotic disease Troponin: Troponin T 0.032 ng/mL (0.00-0.029) H 12/13/20 13:00 Troponin: < normal limit Results - Labs CBC & Chem 7: 12/15/20 04:31 12/15/20 04:31 Labs: Laboratory Last Values WBC 4.9 K/mm3 (4.5-11.0) 12/13/20 00:34 RBC 4.34 M/mm3 (3.65-5.03) 12/13/20 00:34 Hgb 12.5 gm/dl (11.8-15.2) 12/15/20 04:31 Hct 37.8 % (35.5-45.6) 12/15/20 04:31 MCV 86 fl (84-94) 12/13/20 00:34 MCH 29 pg (28-32) 12/13/20 00:34 MCHC 34 % (32-34) 12/13/20 00:34 RDW 16.7 % (13.2-15.2) H 12/13/20 00:34 Plt Count 93 K/mm3 (140-440) L 12/15/20 04:31 Lymph % (Auto) 21.1 % (13.4-35.0) 12/13/20 00:34 [place] % (Auto) 12.9 % (0.0-7.3) H 12/13/20 00:34 Eos % (Auto) 6.6 % (0.0-4.3) H 12/13/20 00:34 Baso % (Auto) 0.5 % (0.0-1.8) 12/13/20 00:34 Lymph # (Auto) 1.0 K/mm3 (1.2-5.4) L 12/13/20 00:34 [place] # (Auto) 0.6 K/mm3 (0.0-0.8) 12/13/20 00:34 Eos # (Auto) 0.3 K/mm3 (0.0-0.4) 12/13/20 00:34 Baso # (Auto) 0.0 K/mm3 (0.0-0.1) 12/13/20 00:34 Seg Neutrophils % 58.9 % (40.0-70.0) 12/13/20 00:34 Seg Neutrophils # 2.9 K/mm3 (1.8-7.7) 12/13/20 00:34 PT 13.6 Sec. (12.2-14.9) 12/13/20 00:34 INR 0.98 (0.87-1.13) 12/13/20 00:34 APTT 27.6 Sec. (24.2-36.6) 12/13/20 00:34 D-Dimer 1073.89 ng/mlDDU (0-234) H 12/13/20 00:34 Heparin Anti-Xa Level 0.35 U.I./ml (0.3-0.7) 12/14/20 07:07 Sodium 139 mmol/L (137-145) 12/15/20 04:31 Potassium 4.2 mmol/L (3.6-5.0) 12/15/20 04:31 Chloride 107.0 mmol/L (98-107) 12/15/20 04:31 Carbon Dioxide 24 mmol/L (22-30) 12/15/20 04:31 Anion Gap 12 mmol/L 12/15/20 04:31 BUN 25 mg/dL (9-20) H 12/15/20 04:31 Creatinine 1.2 mg/dL (0.8-1.3) 12/15/20 04:31 Estimated GFR > 60 ml/min 12/15/20 04:31 BUN/Creatinine Ratio 21 % 12/15/20 04:31 Glucose 79 mg/dL (75-100) 12/15/20 04:31 POC Glucose 214 mg/dL (70-105) H 12/14/20 20:27 Hemoglobin A1c 7.8 % (4-6) H 12/13/20 13:00 Calcium 8.8 mg/dL (8.4-10.2) 12/15/20 04:31 Total Bilirubin 0.30 mg/dL (0.1-1.2) 12/13/20 00:34 AST 30 units/L (5-40) 12/13/20 00:34 ALT 32 units/L (7-56) 12/13/20 00:34 Alkaline Phosphatase 111 units/L (35-129) 12/13/20 00:34 Troponin T 0.032 ng/mL (0.00-0.029) H 12/13/20 13:00 Total Protein 6.1 g/dL (6.3-8.2) L 12/13/20 00:34 Albumin 3.2 g/dL (3.9-5) L 12/13/20 00:34 Albumin/Globulin Ratio 1.1 % 12/13/20 00:34 Triglycerides 183 mg/dL (2-149) H 12/13/20 03:38 Cholesterol 224 mg/dL (50-199) H 12/13/20 03:38 LDL Cholesterol Direct 148 mg/dL (50-130) H 12/13/20 03:38 HDL Cholesterol 53 mg/dL (40-59) 12/13/20 03:38 Cholesterol/HDL Ratio 4.22 % 12/13/20 03:38 Urine Osmolality 660 Mosm/kg 12/13/20 06:24 Urine Sodium 65 mmol/L 12/13/20 06:24 Milian/IV: Voiding Method Urinal Active Medications - Current Medications Current Medications: Generic Name Dose Route Start Last Admin Trade Name Freq PRN Reason Stop Dose Admin Al Hydrox/Mg Hydrox/Simethicone 30 ml 12/13/20 04:44 Alum-Mag Hydroxide-Simethicone [id number]/5ml Oral Liqd 30 Ml PO Q4H PRN Indigestion Allopurinol 100 mg 12/13/20 10:00 12/14/20 10:05 Allopurinol 100 Mg Tab PO 100 mg QDAY ARUN Administration Amlodipine Besylate 10 mg 12/13/20 10:00 12/14/20 10:06 Amlodipine 10 Mg Tab PO 10 mg QDAY ARUN Administration Atorvastatin Calcium 80 mg 12/13/20 22:00 12/14/20 21:42 Atorvastatin 40 Mg Tab PO 80 mg QHS ARUN Administration Famotidine 20 mg 12/14/20 22:00 12/14/20 21:42 Famotidine 20 Mg Tab PO 20 mg BID ARUN Administration Finasteride 5 mg 12/15/20 10:00 Finasteride 5 Mg Tab PO QDAY ARUN Gabapentin 300 mg 12/14/20 22:00 12/14/20 21:42 Gabapentin 300 Mg Cap PO 300 mg BID ARUN Administration Hydralazine HCl 5 mg 12/13/20 05:00 Hydralazine 20 Mg/1 Ml Inj IV Q4H PRN Hypertension Heparin Sodium/Sodium Chloride 25,000 unit in 500 mls @ 20 mls/hr 12/13/20 05:00 12/14/20 02:08 Heparin/ 0.45% Nacl-25,000 Unit/500 Ml IV 1,200 units/hr TITRATE ARUN 24 mls/hr Titration Protocol 1,000 UNITS/HR Insulin Human Isoph/Insulin Regular 20 unit 12/13/20 08:00 12/14/20 17:46 Insulin Nph/Regular 70/30 Inj SUB-Q 20 unit BIDDIAB ARUN Administration Insulin Human Lispro 0 unit 12/13/20 07:30 12/14/20 22:35 Insulin Lispro 100 Unit/Ml SUB-Q 2 unit ACHS ARUN Administration Protocol Magnesium Hydroxide 30 ml 12/13/20 04:44 Magnesium Hydroxide (Mom) Oral Liqd Udc PO Q4H PRN Constipation Morphine Sulfate 2 mg 12/13/20 09:22 Morphine 2 Mg/1 Ml Inj IV Q3H PRN Pain, Moderate (4-6) Nitroglycerin 0.4 mg 12/13/20 09:19 Nitroglycerin 0.4 Mg Tab Subl SL Q5MIN PRN Chest Pain Ondansetron HCl 4 mg 12/13/20 04:44 Ondansetron 4 Mg/2 Ml Inj IV Q8H PRN Nausea And Vomiting Senna 8.6 mg 12/13/20 04:44 Sennosides 8.6 Mg Tab PO Q12HR PRN Constipation Trazodone HCl 50 mg 12/13/20 04:35 Trazodone 50 Mg Tab PO QHS PRN Insomnia Nutrition/Malnutrition Assess - Dietary Evaluation Nutrition/Malnutrition Findings: Nutrition Notes Start: 12/13/20 10:49 Freq: Status: Active Protocol: Document 12/13/20 10:49 MK (Rec: 12/13/20 10:51 PUJA [id number]) Nutrition Notes Need for Assessment generated from: pain coordinator,MST,Education Initial or Follow up Brief Note Current Diagnosis Acute Kidney Injury,Diabetes, Hypertension,Hyperlipidemia Other Pertinent Diagnosis NSTEMI Subjective/Other Information RN screen for MST. Pt has no signs of malnutrition and ate 100% of breakfast. Pt given [facility] Consistent CHO diet education. #1 Nutrition Diagnosis Food and nutrition-related knowledge deficit Etiology no previous diet education As Evidenced by Signs and Symptoms pt had questions about heart healthy diet Nutrition Intervention Teaching Recipient Patient Learning Readiness Good Teaching Methods Discussion,Handout Response to Teaching Verbalize understanding Education Handouts Provided [facility] Consistent CHO Barriers to Learning No Barriers RD phone number provided Yes Patient aware of follow up options Yes Revisit per MD consult or patient Sign Off request:
[2020-12-15] MEDS: INSULIN LISPRO 100 UNIT/ML SUB-Q SCH (09:15)
[2020-12-15] MEDS: INSULIN NPH/REGULAR 70/30 INJ SUB-Q SCH (09:15)
[2020-12-15] MEDS: HEPARIN/ 0.45% NACL DRIP 25,000 UNIT/500 ML BAG IV SCH (09:28)
[2020-12-15] MEDS ORDERED: FINASTERIDE 5 MG TAB PO SCH (10:00)
[2020-12-15] MEDS ORDERED: VERAPAMIL 5 MG/2 ML INJ ONE (10:16)
[2020-12-15] MEDS ORDERED: HEPARIN 10,000 UNITS/10 ML VIAL ONE (10:16)
[2020-12-15] MEDS ORDERED: HEPARIN/NS 5000 UNIT/500ML 1,000 ML IR ONE (10:16)
[2020-12-15] MEDS ORDERED: MIDAZOLAM 2 MG/2 ML INJ ONE (10:16)
[2020-12-15] MEDS ORDERED: LIDOCAINE (2%) 20 MG/1 ML VIAL 20 ML MDV INFILTRATI ONE (10:16)
[2020-12-15] MEDS ORDERED: fentaNYL 100 MCG/2 ML INJ ONE (10:16)
[2020-12-15] MEDS ORDERED: NITROGLYCERIN SYRINGE 3 ML ONE (10:16)
[2020-12-15] MEDS ORDERED: SODIUM CHLORIDE 0.9% 500 ML 500 ML ONE (10:17)
[2020-12-15] MEDS ORDERED: DEXTROSE 50% IN WATER (25GM) 50 ML SYRINGE IV ONE (10:30)
--- NOTE | 2020-12-15 11:24 | Event Note ---
Date: 12/15/20 Cardiac catheterization was completed via the right radial approach, no complications. We found essentially angiographically near-normal coronary arteries, normal left ventricular systolic function with ejection fraction 60 to 65%. Risk factor modification is recommended, no further cardiac work-up, stable for cardiac discharge.
[2020-12-15] MEDS ORDERED: traMADol 50 MG TAB PO PRN (11:25)
[2020-12-15] MEDS ORDERED: SODIUM CHLORIDE 0.9% 1000 ML 1,000 ML IV SCH (11:30)
[2020-12-15] MEDS: FAMOTIDINE 20 MG TAB PO SCH (11:48)
[2020-12-15] MEDS: amLODIPine 10 MG TAB PO SCH (11:48)
[2020-12-15] MEDS: GABAPENTIN 300 MG CAP PO SCH (11:48)
[2020-12-15] MEDS: allopurinoL 100 MG TAB PO SCH (11:49)
--- NOTE | 2020-12-15 11:53 | Cardiac Catherization Report ---
DATE OF SERVICE: 12/15/2020 REASON FOR PROCEDURE: A 70-year-old man admitted with atypical chest pain and borderline elevation in troponin levels, recommended for cardiac catheterization. PROCEDURES PERFORMED: 1. Left heart catheterization. 2. Selective left and right coronary angiography. 3. Left ventricular angiography. 4. Sedation time start 10:44, end 10:58. DESCRIPTION OF PROCEDURE: The patient was prepped and draped in a sterile fashion after informed consent. The right radial cath site was prepped and draped after negative Hermilo's test. The right radial artery was entered using Seldinger technique followed by placement of a 6-Bengali hydrophilic sheath. Routine radial cocktail was administered via the sheath. Selective left and right coronary angiography was performed using a #3.5 left Evelyn and #4 right Evelyn. The pigtail catheter was used for left ventricular angiography. Catheters were then removed, sheath removed and hemostasis achieved using a TR band. The patient was returned to the postprocedure unit in stable condition. There were no complications. FINDINGS: HEMODYNAMICS: Left ventricular end diastolic pressure was 22, following coronary angiography. Ascending aortic pressure 142/70. There was no significant pressure gradient on pullback across the aortic valve. CORONARY ANGIOGRAPHY: Left main coronary artery was angiographically normal. The left anterior descending artery and its diagonal branches were angiographically normal. A medium size ramus intermedius artery was free of significant disease. The circumflex artery contained mild luminal irregularities in the distal segments. The right coronary artery was a large caliber, dominant vessel that contained mild irregularities in its mid segment. No significant coronary lesions were noted in either left or right coronary system. There was normal left ventricular systolic function, ejection fraction 60-65%. CONCLUSION: 1. No significant coronary artery disease, essentially angiographically near-normal coronary arteries. 2. Normal left ventricular systolic function, ejection fraction 60-65%. RECOMMENDATIONS: Risk factor modification and medical therapy. TID: [id number] RECEIPT: [id number] JESSE/NICK
--- NOTE | 2020-12-15 12:31 | Discharge Summary ---
Providers - Providers Date of Admission: 12/13/20 04:22 Attending physician: CHAPIS VILLAGOMEZ MD 12/13/20 04:40 Consult to Physician [CONS] Routine Comment: Consulting Provider: KIKE MARCELO Physician Instructions: Reason For Exam: chest pain 12/15/20 11:25 Consult to Cardiac Rehabilitation [CONS] Routine Reason For Exam: Cardiac Rehab Evaluation Primary care physician: OBSTETRICS SCRUB NURSE Hospitalization Reason for admission: NSTEMI Condition: Stable Procedures: Left heart cath, clean coronaries Hospital course: History of present illness: Patient is a 70-year-old Belarusian-speaking gentleman who is currently admitted to the hospital for chest pain. Patient reports no prior heart problems. Has a history of alcohol abuse. He presented to the hospital with gradual onset of substernal chest pain with no particular aggravating or relieving factors. Reports no radiation of pain. Reports since he has been in the hospital his pain is improved but still has a vague 2 out of 10 chest pain. As indicated above reports no prior cardiac problems. Reports no dizziness palpitations or lightheadedness. Patient's EKG was consistent with bradycardia and Wenckebach. Hospital course --NSTEMI Continue heparin drip, aspirin, statin Plan for cardiac cath tomorrow Cardiology following --Chest pain Chest pain is atypical, poorly characterized. There is a borderline troponin level elevation, and patient was recommended to undergo diagnostic coronary angiography. --Mobitz type I second-degree AV block Hold any beta-david, follow clinically --Elevated D-dimer, CTA chest negative for PE, lower extremity Doppler negative for DVT --STEFANO likely due to vasomotor nephropathy Monitor kidney function Avoid nephrotoxic drugs including nonsteroidal anti-inflammatory agent and contrast media Renal function now stable --Essential hypertension As needed hydralazine Resume home antihypertensive Hold beta-david for AV block --Diabetes mellitus type 2 Check hemoglobin A1c Monitor blood sugar with sliding scale protocol Resume home antihyperglycemics --Hyperlipidemia, continue statin --Thrombocytopenia, monitor CBC Likely due to chronic alcohol abuse --History of alcohol abuse Discussed complication of alcohol use including cirrhosis of the liver and liver CA Patient voiced understanding --DVT prophylaxis, on heparin GGT Daily clinical course: 12/14/20: Creatinine stable, continue gentle IV fluid hydration and heparin drip. Plan for cardiac cath tomorrow. Cardiology following. 12/15/2020; patient will have cardiac cath today. Cardiology is following. Patient can be discharged once cleared by cardiology. Patient had a cardiac cath this morning and showed clean coronaries. Cardiology recommend medical management. I reviewed his home medications and patient is on appropriate anti-ischemic medications. Patient was hemodynamically stable at the time of discharge. Management plan was discussed in detail with the patient and agreed with the plan of care. Disposition: DC-01 TO HOME OR SELFCARE Final Discharge Diagnosis (Prints w/discharge instructions): NSTEMI Time spent for discharge: 25 minutes - Discharge Diagnoses (1) Alcohol use Status: Acute (2) Chest pain Status: Acute Qualifiers: Chest pain type: unspecified Qualified Code(s): R07.9 - Chest pain, unspecified (3) NSTEMI (non-ST elevated myocardial infarction) Status: Acute (4) Renal insufficiency Status: Acute Core Measure Documentation - Palliative Care Palliative Care/ Comfort Measures: Not Applicable - Core Measures Any of the following diagnoses?: none Exam - Physical Exam Narrative exam: Not in cardiopulmonary distress. The patient appeared well nourished and normally developed. Vital signs as documented. Head exam is unremarkable. No scleral icterus . Neck is without jugular venous distension, thyromegaly, or carotid bruits. Lungs are clear to auscultation. Cardiac exam reveals regular rate and Rhythm. Abdominal exam reveals normal bowel sounds, nontender, no organomegaly. Extremities are nonedematous and both femoral and pedal pulses are normal. 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 No focal weakness. - Constitutional Vitals: Temp Pulse Resp BP Pulse Ox 98.2 F 59 L 18 127/71 97 12/15/20 06:40 12/15/20 11:48 12/15/20 06:40 12/15/20 06:40 12/15/20 09:21 Plan Activity: no restrictions Weight Bearing Status: Full Weight Bearing Diet: low cholesterol, low salt Follow up with: PRIMARY CAREMD [Primary Care Provider] - 7 Days
--- NOTE | 2020-12-17 12:55 | Electrocardiograph Report ---
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
--- NOTE | 2020-12-17 13:02 | Electrocardiograph Report ---
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
--- NOTE | 2020-12-18 18:59 | Electrocardiograph Report ---
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 Electronically Signed On 12-18-2020 18:58:48 EDT by Curt White
== END 2020-12-15 16:30 | disposition home or self-care (01) ==
LOC: ED 00:15 → 4A 04:22
PROVIDERS: ADMIT Internal Medicine Geriatric Medicine; ATTEND Internal Medicine
DX: I21.4 Non-ST elevation (NSTEMI) myocardial infarction (principal); R07.89 Other chest pain; N17.9 Acute kidney failure, unspecified; I10 Essential (primary) hypertension; R77.8 Other specified abnormalities of plasma proteins; E11.9 Type 2 diabetes mellitus without complications; D69.6 Thrombocytopenia, unspecified; N28.9 Disorder of kidney and ureter, unspecified; R00.1 Bradycardia, unspecified; I44.1 Atrioventricular block, second degree; E78.5 Hyperlipidemia, unspecified; F10.929 Alcohol use, unspecified with intoxication, unspecified; Z79.4 Long term (current) use of insulin; Z79.82 Long term (current) use of aspirin
CPT/HCPCS: 36415; 71045; 71275; 76770; 80048; 80053; 80061; 82962; 83036; 83935; 84300; 84484; 85014; 85018; 85025; 85049; 85379; 85520; 85610; 85730; 93005; 93458; 93970; 96365; 96366; 96375; 96376; 99291; A9270; C1894; G0378; J1644; J2250; J2270; J3010; J7040; Q9967; J1815

== ENCOUNTER 2021-09-19 18:00 | Inpatient (IN) | payer MEDICARE ==
--- NOTE | 2021-09-19 18:18 | Emergency Department Report ---
ED Shortness of Breath HPI - General Chief Complaint: Dyspnea/Respdistress Stated Complaint: [place] Time Seen by Provider: 09/19/21 18:10 Source: patient, EMS Mode of arrival: Stretcher Limitations: Language Barrier - History of Present Illness Initial Comments: Chief complaint shortness of breath HPI: 71-year-old male with history of COPD, diabetes mellitus, CHF who presents with shortness of breath for last 3 days. Oxygen saturation 90% on room air per EMS. Patient was treated with albuterol, 2 g of magnesium via EMS. MD Complaint: shortness of breath -: days(s) (3 days) Severity: moderate Consistency: constant Improves With: oxygen, bronchodilators Worsens With: exertion Known History Of: COPD, congestive heart failure, diabetes Associated Symptoms: denies other symptoms Treatments Prior to Arrival: bronchodilator, CPR (Magnesium) - Related Data Allergies Allergy/AdvReac Type Severity Reaction Status Date / Time No Known Allergies Allergy Verified 09/19/21 18:03 ED Review of Systems ROS: Stated complaint: [place] Other details as noted in HPI Comment: All other systems reviewed and negative Constitutional: denies: chills, fever, malaise Respiratory: shortness of breath. denies: cough Cardiovascular: denies: chest pain Gastrointestinal: denies: abdominal pain, nausea, vomiting ED Past Medical Hx - Past Medical History Previous Medical History?: Yes Hx Hypertension: Yes Hx Congestive Heart Failure: Yes Hx Diabetes: Yes Hx COPD: Yes - Surgical History Past Surgical History?: Yes Hx Pacemaker: Yes - Social History Smoking Status: Former Smoker Substance Use Type: None ED Physical Exam - General Limitations: Language Barrier General appearance: alert, in no apparent distress - Head Head exam: Present: atraumatic, normocephalic - Eye Eye exam: Present: normal appearance - ENT ENT exam: Present: mucous membranes moist - Neck Neck exam: Present: normal inspection, full ROM - Respiratory Respiratory exam: Present: normal lung sounds bilaterally. Absent: respiratory distress, wheezes, rales, rhonchi - Cardiovascular Cardiovascular Exam: Present: regular rate, normal rhythm, normal heart sounds. Absent: systolic murmur, diastolic murmur, rubs, gallop - GI/Abdominal GI/Abdominal exam: Present: soft, normal bowel sounds. Absent: distended, tenderness, guarding, rebound - Rectal Rectal exam: Present: deferred - Extremities Exam Extremities exam: Present: normal inspection - Neurological Exam Neurological exam: Present: alert, oriented X3 - Psychiatric Psychiatric exam: Present: normal affect, normal mood - Skin Skin exam: Present: warm, dry, intact, normal color. Absent: rash ED Course Vital Signs 09/19/21 18:23 Respiratory 20 Rate O2 Sat by Pulse 96 Oximetry ED Medical Decision Making - Lab Data Result diagrams: 09/19/21 18:42 09/19/21 18:42 - EKG Data -: EKG Interpreted by Me - EKG Data 09/19/21 18:39 EKG obtained 1827 EKG interpreted by me Ventricular paced rhythm 70 bpm leftward axis widened paced QRS prolonged QTC no ST elevation nonischemic T wave pattern - Radiology Data Radiology results: report reviewed Patient Name: TA UMANZOR Gender: Male Date of : 1950 Home Phone: Referring Provider: BENJI MORGAN Organization: [facility] Accession Number: [id number] Requested Date: September 19, 2021 18:18 Report Status: Final Requested Procedure: 1 Procedure Description: XR chest 1V ap Modality: XR Findings Reporting MD: Carl Tran Dictation Time: September 19, 2021 18:01 Marketing Support Coordinator: Not available Epitaxial Reactor Technician Date: Chest single view INDICATION: Dyspnea IMPRESSION: Patchy airspace disease within the mid and right lower lung concerning for pneumonia. There is faint airspace opacity within the left lower lung. No pneumothorax. Signer Name: Carl Tran MD Signed: 09/19/2021 6:01 PM Workstation Name: [id number] - Medical Decision Making Community-acquired pneumonia with lymphopenia concerning for COVID-19. Antibiotic therapy including ceftriaxone and azithromycin ordered emergency apartment. Patient admitted to the hospital service. Chemistry reveals normal troponin value normal BNP Critical care attestation.: If time is entered above; I have spent that time in minutes in the direct care of this critically ill patient, excluding procedure time. ED Disposition Clinical Impression: Community acquired pneumonia, Suspected COVID-19 virus infection Disposition: ADMITTED INPATIENT Is pt being admited?: Yes Does the pt Need Aspirin: No Condition: Stable Instructions: Bacterial Pneumonia (ED)
--- NOTE | 2021-09-19 19:06 | XRay Report ---
Chest single view INDICATION: Dyspnea IMPRESSION: Patchy airspace disease within the mid and right lower lung concerning for pneumonia. The re is faint airspace opacity within the left lower lung. No pneumothorax. Signer Name: Carl Tran MD Signed: 09/19/2021 7:01 PM Workstation Name: [id number]
[2021-09-19] MEDS ORDERED: cefTRIAXone/NS 1 GM/50 ML 1 GM/50 ML BAG IV ONE (19:08)
[2021-09-19] MEDS ORDERED: AZITHROMYCIN/NS 500 MG/250 ML 500 MG/250 ML BAG IV ONE (19:08)
[2021-09-19 19:29] LABS: Hematocrit 32.6 % (35.5-45.6); Hemoglobin 10.1 gm/dl (11.8-15.2); Mean Corpuscular HGB Conc 31 % (32-34); Mean Corpuscular Volume 78 fl (84-94); Platelet Count 130 K/mm3 (140-440); Red Blood Count 4.15 M/mm3 (3.65-5.03)
[2021-09-19 19:42] LABS: Alanine Aminotransferase 17 units/L (7-56); BUN/Creatinine Ratio 15; Blood Urea Nitrogen 17 mg/dL (9-20); Hemolysis Index 4
--- NOTE | 2021-09-19 19:47 | History and Physical Report ---
History of Present Illness Chief complaint: I cannot breathe and I feel weak History of present illness: 71 YO Male with CHF, DM, COPD, HTN, Obesity Hypoventilation Syndrome, Metabolic Syndrome, Cardiomyopathy S/P Pacemaker placement presents ED for evaluation. Patient reports "I cannot breathe". Patient says he has experienced shortness of breath, generalized weakness, malaise, body aches, decreased exercise tole esther over the past 2 days with persistent and worsening symptoms over the same timeframe. EMS was notified and upon arrival the patient was found to be in distress and subsequently transported to [facility] for further care and evaluation of the aforementioned symptoms. The patient was seen and evaluated in the emergency department. All lab and imaging studies reviewed. Patient was found to have a pulse oximetry of 88% with exertion which is consistent with acute hypoxemic respiratory failure. Chest x-ray revealed bilateral pneumonia. Patient admitted to medical floor and initiated on pneumonia protocol as well as coronavirus protocol. Patient denies fever, chills, chest pain, palpitation, skin rash, recent contact, unilateral leg swelling, calf pain, prolonged immobility/travel, individual/family history of DVT/PE/bleeding/blood clotting disorders, unknown exposure to COVID-19. No prior admission for review. No medication listed at time of admission for reconciliation. Advanced care planning conducted in ED. Past History Past Medical History: COPD, diabetes, heart failure, hypertension Past Surgical History: Other (Pacemaker placement) Social history: no significant social history. denies: smoking, alcohol abuse, prescription drug abuse Family history: diabetes, hypertension Medications and Allergies Allergies Allergy/AdvReac Type Severity Reaction Status Date / Time No Known Allergies Allergy Verified 09/19/21 18:03 Home Medications Medication Instructions Recorded Confirmed Last Taken Type Finasteride [Proscar] 5 mg PO BID 09/19/21 09/19/21 09/19/21 History Gabapentin 300 mg PO 09/19/21 09/19/21 History Hydrochlorothiazide 12.5 mg 09/19/21 09/19/21 History Metoprolol [Lopressor TAB] 50 mg PO BID 09/19/21 09/19/21 09/19/21 History Sitagliptin Phos/Metformin HCl 50 mg PO 09/19/21 09/19/21 History [Janumet 50-1,000 mg Tablet] Active Meds: Active Medications Azithromycin (Zithromax/Ns) 500 mg in 250 mls @ 250 mls/hr IV ONCE ONE; Protocol Stop: 09/19/21 20:07 Review of Systems Constitutional: weakness, malaise, no weight loss, no weight gain, no fever, no chills Ears, nose, mouth and throat: no ear pain, no decreased hearing, no nose pain Cardiovascular: no chest pain, no orthopnea, no palpitations Respiratory: cough, shortness of breath, congestion Gastrointestinal: no abdominal pain, no nausea, no vomiting, no diarrhea Genitourinary Male: no flank pain, no discharge, no urinary frequency, no urinary hesitancy Rectal: no pain, no incontinence, no bleeding Musculoskeletal: no neck stiffness, no shooting arm pain, no arm numbness/tingling, no low back pain, no shooting leg pain Integumentary: no rash, no pruritis, no redness, no wounds, no jaundice Neurological: no transient paralysis, no weakness, no numbness, no seizures, no syncope Psychiatric: no anxiety, no change in sleep habits, no insomnia, no hypersomnia, no change in appetite, no suicidal ideation Endocrine: no cold intolerance, no excessive thirst, no polydipsia, no polyuria, no excessive sweating Hematologic/Lymphatic: no easy bruising, no easy bleeding Exam - Constitutional Vitals: Temp Pulse Resp BP Pulse Ox 20 96 09/19/21 18:23 09/19/21 18:23 General appearance: Present: mild distress, obese - EENT Eyes: Present: PERRL ENT: hearing intact, clear oral mucosa - Neck Neck: Present: supple, normal ROM - Respiratory Respiratory effort: normal Respiratory: bilateral: diminished, rhonchi - Cardiovascular Heart Sounds: Present: S1 & S2. Absent: rub, click - Extremities Extremities: pulses symmetrical, No edema Peripheral Pulses: within normal limits - Abdominal General gastrointestinal: Present: soft, non-tender, non-distended, normal bowel sounds Male genitourinary: Present: normal - Integumentary Integumentary: Present: clear, warm, dry - Musculoskeletal Musculoskeletal: gait normal, strength equal bilaterally - Psychiatric Psychiatric: appropriate mood/affect, intact judgment & insight - Neurologic Neurologic: CNII-XII intact, moves all extremities HEART Score - HEART Score Troponin: Troponin T 0.028 ng/mL (0.00-0.029) 09/19/21 18:42 Results - Labs CBC & Chem 7: 09/19/21 18:42 09/19/21 18:42 Labs: Abnormal lab results 09/19/21 09/19/21 Range/Units 18:42 18:42 WBC 4.0 L (4.5-11.0) K/mm3 Hgb 10.1 L (11.8-15.2) gm/dl Hct 32.6 L (35.5-45.6) % MCV 78 L (84-94) fl MCH 24 L (28-32) pg MCHC 31 L (32-34) % RDW 19.0 H (13.2-15.2) % Plt Count 130 L (140-440) K/mm3 Glucose 159 H (75-100) mg/dL Albumin 3.0 L (3.9-5) g/dL Assessment and Plan - Patient Problems (1) Pneumonia Status: Acute Plan to address problem: Pneumonia protocol: Chest x-ray, supplemental oxygen, pulse oximetry, nebulizer therapy, IV antibiotic therapy, blood culture, pulmonary toilet (2) Acute hypoxemic respiratory failure Status: Acute Plan to address problem: Chest x-ray, supplemental oxygen, pulse oximetry, nebulizer therapy, (3) Suspected COVID-19 virus infection Status: Acute Plan to address problem: Coronavirus protocol: IV antibiotic therapy, supplemental oxygen, vitamin C therapy, vitamin D therapy, zinc therapy, steroid therapy. (4) Metabolic syndrome Status: Acute Plan to address problem: Balanced diet, increase physical activity discharge, low-cholesterol diet (5) Obesity hypoventilation syndrome Status: Acute Plan to address problem: Balanced diet, increase physical activity discharge, outpatient pulmonary follow-up for sleep study. (6) Hypertension Status: Acute Qualifiers: Hypertension type: primary hypertension Qualified Code(s): I10 - Essential (primary) hypertension Plan to address problem: Monitor blood pressure every shift, continue medical management. (7) Hyperlipidemia Status: Acute Plan to address problem: Low-cholesterol diet, statin therapy as clinically indicated, supportive care. (8) CHF (congestive heart failure) Status: Acute Qualifiers: Heart failure chronicity: chronic Plan to address problem: Strict I/O, monitor urine output every shift, daily weight, afterload reduction, monitor fluid balance, blood pressure control, supplemental oxygen, supportive care. No acute exacerbation at this time, continue medical management (9) Diabetes Status: Acute Plan to address problem: Consistent carbohydrate diet, Accu-Chek, insulin protocol, hypoglycemia protocol (10) DVT prophylaxis Status: Acute Plan to address problem: SCD to bilateral lower extremities while in bed (11) Advance care planning Status: Acute Plan to address problem: Disease education conducted, care plan discussed, diagnoses discussed, prognosis discussed, patient is full code. Patient knowledges understanding agree with care plan, +30 minutes.
[2021-09-19] MEDS ORDERED: ONDANSETRON 4 MG/2 ML INJ IV PRN (19:48)
[2021-09-19] MEDS ORDERED: HYDROmorphone 1 MG/1 ML INJ IV PRN (19:48)
[2021-09-19 20:09] LABS: Anisocytosis 2+; Basophils % (Manual) 0 % (0.0-1.8); Hypochromasia 1+; Platelet Estimate Consistent w Auto; Total Cells Counted 100
[2021-09-19] MEDS: cefTRIAXone/NS 2 GM/100 ML 2 GM/100 ML BAG IV SCH (20:43)
[2021-09-19] MEDS ORDERED: ACETAMINOPHEN 325 MG TAB PO PRN (21:30)
[2021-09-19] MEDS: methylPREDNISolone Sod Succinate 40 MG/1 ML INJ IV SCH (22:54)
[2021-09-19] MEDS: oxyCODONE /ACETAMINOPHEN 5-325MG TAB PO PRN (22:54)
[2021-09-19] MEDS: ZINC SULFATE 220 MG CAP PO SCH (22:54)
[2021-09-19] MEDS: HEPARIN 5,000 UNIT/1 ML VIAL SUB-Q SCH (22:54)
[2021-09-19] MEDS: ASCORBIC ACID 500 MG TAB PO SCH (22:54)
[2021-09-20] MEDS: ALBUTEROL 2.5 MG/3 ML NEBU IH PRN ×3 (00:23→21:08)
[2021-09-20] MEDS: INSULIN LISPRO 100 UNIT/ML SUB-Q SCH ×5 (03:30→22:04)
[2021-09-20] MEDS: methylPREDNISolone Sod Succinate 40 MG/1 ML INJ IV SCH (06:19)
[2021-09-20 07:29] LABS: Basophils % (Auto) 0.1 % (0.0-1.8); Eosinophils % (Auto) 0.2 % (0.0-4.3); Lymphocytes # (Auto) 0.6 K/mm3 (1.2-5.4); Lymphocytes % (Auto) 11.7 % (13.4-35.0); Mean Corpuscular HGB Conc 30 % (32-34); Mean Corpuscular Volume 79 fl (84-94); Monocytes # (Auto) 0.1 K/mm3 (0.0-0.8); Monocytes % (Auto) 1.2 % (0.0-7.3); Platelet Count 136 K/mm3 (140-440); Red Cell Distribution Width 18.9 % (13.2-15.2)
[2021-09-20 07:32] LABS: Hemoglobin 10.3 gm/dl (11.8-15.2)
[2021-09-20 07:48] LABS: BUN/Creatinine Ratio 19; Blood Urea Nitrogen 25 mg/dL (9-20); Calcium 8.9 mg/dL (8.4-10.2); Hemolysis Index 5
--- NOTE | 2021-09-20 08:14 | Progress Note ---
Assessment and Plan Assessment and plan: #Acute hypoxemic respiratory failure #Pneumonia Pneumonia protocol: Chest x-ray, supplemental oxygen, pulse oximetry, nebulizer therapy, IV antibiotic therapy, blood culture, pulmonary toilet Chest x-ray, supplemental oxygen, pulse oximetry, nebulizer therapy, #Suspected COVID-19 virus infection -COVID PCR collected, result pending -pt with history of previous COVID infection, still unvaccinated -empiric steroids started on admission, will discontinue if PCR is negative #Metabolic syndrome Balanced diet, increase physical activity discharge, low-cholesterol diet #Obesity hypoventilation syndrome Balanced diet, increase physical activity discharge, outpatient pulmonary follow-up for sleep study. #Hypertension Monitor blood pressure every shift, continue medical management. #Hyperlipidemia Low-cholesterol diet, statin therapy as clinically indicated, supportive care. #hx of CHF (congestive heart failure) Strict I/O, monitor urine output every shift, daily weight, afterload reduction, monitor fluid balance, blood pressure control, supplemental oxygen, supportive care. No acute exacerbation at this time, continue medical management #Type II Diabetes with hyperglycemia -hyperglycemia likely secondary to steroid administration, Solu-Medrol frequency decreased to qday -continue SSI -will order A1C (11) Advance care planning Disease education conducted, care plan discussed, diagnoses discussed, prognosis discussed, patient is full code. Patient knowledges understanding agree with care plan, +30 minutes. History Interval history: No acute events overnight. Patient reports feeling better than when he first came. Denies chest pain. His shortness of breath is stable. He has had Covid in the past and is not vaccinated. Hospitalist Physical - Physical exam Narrative exam: GENERAL: Obese. In no acute distress. HEENT: Nasal cannula in place at 4 L/min NECK: Supple. CHEST/LUNGS: Coarse breath sounds bilaterally. HEART/CARDIOVASCULAR: RRR. No murmur, rubs or gallops appreciated. ABDOMEN: +BS. NT/ND. SKIN: No rashes noted. NEURO: No focal motor deficit. Follows all commands. MUSCULOSKELETAL: No joint effusion EXTREMITIES: No cyanosis, clubbing or edema. PSYCH: Cooperative. - Constitutional Vitals: Temp Pulse Resp BP Pulse Ox 98.0 F 73 22 152/78 95 09/20/21 05:38 09/20/21 05:38 09/20/21 05:38 09/20/21 05:38 09/20/21 05:38 General appearance: Present: mild distress, obese HEART Score - HEART Score Troponin: Troponin T 0.028 ng/mL (0.00-0.029) 09/19/21 18:42 Results - Labs CBC & Chem 7: 09/20/21 06:39 09/20/21 06:39 Labs: Laboratory Last Values WBC 5.2 K/mm3 (4.5-11.0) 09/20/21 06:39 RBC 4.30 M/mm3 (3.65-5.03) 09/20/21 06:39 Hgb 10.3 gm/dl (11.8-15.2) L 09/20/21 06:39 Hct 34.0 % (35.5-45.6) L 09/20/21 06:39 MCV 79 fl (84-94) L 09/20/21 06:39 MCH 24 pg (28-32) L 09/20/21 06:39 MCHC 30 % (32-34) L 09/20/21 06:39 RDW 18.9 % (13.2-15.2) H 09/20/21 06:39 Plt Count 136 K/mm3 (140-440) L 09/20/21 06:39 Lymph % (Auto) 11.7 % (13.4-35.0) L 09/20/21 06:39 [place] % (Auto) 1.2 % (0.0-7.3) 09/20/21 06:39 Eos % (Auto) 0.2 % (0.0-4.3) 09/20/21 06:39 Baso % (Auto) 0.1 % (0.0-1.8) 09/20/21 06:39 Lymph # (Auto) 0.6 K/mm3 (1.2-5.4) L 09/20/21 06:39 [place] # (Auto) 0.1 K/mm3 (0.0-0.8) 09/20/21 06:39 Eos # (Auto) 0.0 K/mm3 (0.0-0.4) 09/20/21 06:39 Baso # (Auto) 0.0 K/mm3 (0.0-0.1) 09/20/21 06:39 Add Manual Diff Complete 09/19/21 18:42 Total Counted 100 09/19/21 18:42 Seg Neutrophils % 86.8 % (40.0-70.0) H 09/20/21 06:39 Seg Neuts % (Manual) 63.0 % (40.0-70.0) 09/19/21 18:42 Band Neutrophils % 0 % 09/19/21 18:42 Lymphocytes % (Manual) 14.0 % (13.4-35.0) 09/19/21 18:42 Reactive Lymphs % (Man) 0 % 09/19/21 18:42 Monocytes % (Manual) 7.0 % (0.0-7.3) 09/19/21 18:42 Eosinophils % (Manual) 16.0 % (0.0-4.3) H 09/19/21 18:42 Basophils % (Manual) 0 % (0.0-1.8) 09/19/21 18:42 Metamyelocytes % 0 % 09/19/21 18:42 Myelocytes % 0 % 09/19/21 18:42 Promyelocytes % 0 % 09/19/21 18:42 Blast Cells % 0 % 09/19/21 18:42 Nucleated RBC % Not Reportable 09/19/21 18:42 Seg Neutrophils # 4.5 K/mm3 (1.8-7.7) 09/20/21 06:39 Seg Neutrophils # Man 2.5 K/mm3 (1.8-7.7) 09/19/21 18:42 Band Neutrophils # 0.0 K/mm3 09/19/21 18:42 Lymphocytes # (Manual) 0.6 K/mm3 (1.2-5.4) L 09/19/21 18:42 Abs React Lymphs (Man) 0.0 K/mm3 09/19/21 18:42 Monocytes # (Manual) 0.3 K/mm3 (0.0-0.8) 09/19/21 18:42 Eosinophils # (Manual) 0.6 K/mm3 (0.0-0.4) H 09/19/21 18:42 Basophils # (Manual) 0.0 K/mm3 (0.0-0.1) 09/19/21 18:42 Metamyelocytes # 0.0 K/mm3 09/19/21 18:42 Myelocytes # 0.0 K/mm3 09/19/21 18:42 Promyelocytes # 0.0 K/mm3 09/19/21 18:42 Blast Cells # 0.0 K/mm3 09/19/21 18:42 WBC Morphology Not Reportable 09/19/21 18:42 Hypersegmented Neuts Not Reportable 09/19/21 18:42 Hyposegmented Neuts Not Reportable 09/19/21 18:42 Hypogranular Neuts Not Reportable 09/19/21 18:42 Smudge Cells Not Reportable 09/19/21 18:42 Toxic Granulation Not Reportable 09/19/21 18:42 Toxic Vacuolation Not Reportable 09/19/21 18:42 Dohle Bodies Not Reportable 09/19/21 18:42 Pelger-Huet Anomaly Not Reportable 09/19/21 18:42 Topher Rods Not Reportable 09/19/21 18:42 Platelet Estimate Consistent w auto 09/19/21 18:42 Clumped Platelets Not Reportable 09/19/21 18:42 Plt Clumps, EDTA Not Reportable 09/19/21 18:42 Large Platelets Not Reportable 09/19/21 18:42 Giant Platelets Not Reportable 09/19/21 18:42 Platelet Satelliting Not Reportable 09/19/21 18:42 Plt Morphology Comment Not Reportable 09/19/21 18:42 RBC Morphology Not Reportable 09/19/21 18:42 Dimorphic RBCs Not Reportable 09/19/21 18:42 Polychromasia Not Reportable 09/19/21 18:42 Hypochromasia 1+ 09/19/21 18:42 Poikilocytosis Not Reportable 09/19/21 18:42 Anisocytosis 2+ 09/19/21 18:42 Microcytosis 1+ 09/19/21 18:42 Macrocytosis Not Reportable 09/19/21 18:42 Spherocytes Not Reportable 09/19/21 18:42 Pappenheimer Bodies Not Reportable 09/19/21 18:42 Sickle Cells Not Reportable 09/19/21 18:42 Target Cells Not Reportable 09/19/21 18:42 Tear Drop Cells Not Reportable 09/19/21 18:42 Ovalocytes Not Reportable 09/19/21 18:42 Helmet Cells Not Reportable 09/19/21 18:42 [place] Bodies Not Reportable 09/19/21 18:42 [place] Rings Not Reportable 09/19/21 18:42 [place] Cells Not Reportable 09/19/21 18:42 Bite Cells Not Reportable 09/19/21 18:42 Crenated Cell Not Reportable 09/19/21 18:42 Elliptocytes Not Reportable 09/19/21 18:42 Acanthocytes (Spur) Not Reportable 09/19/21 18:42 Rouleaux Not Reportable 09/19/21 18:42 Hemoglobin C Crystals Not Reportable 09/19/21 18:42 Schistocytes Not Reportable 09/19/21 18:42 Malaria parasites Not Reportable 09/19/21 18:42 Sushil Bodies Not Reportable 09/19/21 18:42 Hem Pathologist Commnt No 09/19/21 18:42 Sodium 136 mmol/L (137-145) L 09/20/21 06:39 Potassium 4.9 mmol/L (3.6-5.0) 09/20/21 06:39 Chloride 102.8 mmol/L (98-107) 09/20/21 06:39 Carbon Dioxide 23 mmol/L (22-30) 09/20/21 06:39 Anion Gap 15 mmol/L 09/20/21 06:39 BUN 25 mg/dL (9-20) H 09/20/21 06:39 Creatinine 1.3 mg/dL (0.8-1.3) 09/20/21 06:39 Estimated GFR > 60 ml/min 09/20/21 06:39 BUN/Creatinine Ratio 19 % 09/20/21 06:39 Glucose 334 mg/dL (75-100) H 09/20/21 06:39 Calcium 8.9 mg/dL (8.4-10.2) 09/20/21 06:39 Total Bilirubin 0.30 mg/dL (0.1-1.2) 09/19/21 18:42 AST 20 units/L (5-40) 09/19/21 18:42 ALT 17 units/L (7-56) 09/19/21 18:42 Alkaline Phosphatase 91 units/L (35-129) 09/19/21 18:42 Troponin T 0.028 ng/mL (0.00-0.029) 09/19/21 18:42 NT-Pro-B Natriuret Pep 350.6 pg/mL (0-900) 09/19/21 18:42 Total Protein 6.7 g/dL (6.3-8.2) 09/19/21 18:42 Albumin 3.0 g/dL (3.9-5) L 09/19/21 18:42 Albumin/Globulin Ratio 0.8 % 09/19/21 18:42 Microbiology: Microbiology 09/19/21 20:56 Peripheral/Venous Blood Culture - Preliminary Culture in Progress 09/19/21 20:28 Peripheral/Venous Blood Culture - Preliminary Culture in Progress Milian/IV: Voiding Method Toilet Active Medications - Current Medications Current Medications: Generic Name Dose Route Start Last Admin Trade Name Freq PRN Reason Stop Dose Admin Acetaminophen 650 mg 09/19/21 21:30 Acetaminophen 325 Mg Tab PO Q4H PRN Pain MILD(1-3)/Fever >100.5/CORTÉS Albuterol 2.5 mg 09/19/21 21:30 09/20/21 00:23 Albuterol 2.5 Mg/3 Ml Nebu IH 2.5 mg Q4HRT PRN Administration Shortness Of Breath Ascorbic Acid 500 mg 09/19/21 22:00 09/19/21 22:54 Ascorbic Acid 500 Mg Tab PO 500 mg BID ARUN Administration Azithromycin 500 mg 09/20/21 10:00 Azithromycin 250 Mg Tab PO 09/23/21 10:01 QDAY [facility] Protocol Cholecalciferol 1,000 unit 09/20/21 10:00 Cholecalciferol (Vit D3) 400 Unit Tab PO QDAY [facility] Heparin Sodium (Porcine) 5,000 unit 09/19/21 22:00 09/19/21 22:54 Heparin 5,000 Unit/1 Ml Vial SUB-Q 5,000 unit Q12HR ARUN Administration Hydromorphone HCl 0.5 mg 09/19/21 19:48 Hydromorphone 1 Mg/1 Ml Inj IV Q23H PRN Pain , Severe (7-10) Ceftriaxone Sodium 2 gm in 100 mls @ 200 mls/hr 09/19/21 20:00 09/19/21 20:43 Rocephin/Ns 2 Gm/100 Ml IV 09/23/21 20:29 Not Given Q24H [facility] Protocol Insulin Human Lispro 0 unit 09/20/21 01:48 09/20/21 03:30 Insulin Lispro 100 Unit/Ml SUB-Q Not Given ACHS [facility] Protocol Methylprednisolone Sodium Succinate 40 mg 09/19/21 22:00 09/20/21 06:19 Methylprednisolone Sod Succinate 40 Mg/1 Ml Inj IV 40 mg Q8HR ARUN Administration Ondansetron HCl 4 mg 09/19/21 19:48 Ondansetron 4 Mg/2 Ml Inj IV Q8H PRN Nausea And Vomiting Oxycodone/Acetaminophen 1 tab 09/19/21 19:48 09/19/21 22:54 Oxycodone /Acetaminophen 5-325mg Tab PO 1 tab Q6H PRN Administration Pain, Moderate (4-6) Sodium Chloride 10 ml 09/19/21 22:00 09/19/21 22:47 Sodium Chloride 0.9% 10 Ml Flush Syringe IV 10 ml BID ARUN Administration Sodium Chloride 10 ml 09/19/21 19:48 Sodium Chloride 0.9% 10 Ml Flush Syringe IV PRN PRN LINE FLUSH Zinc Sulfate 220 mg 09/19/21 22:00 09/19/21 22:54 Zinc Sulfate 220 Mg Cap PO 220 mg BID ARUN Administration
[2021-09-20] MEDS: AZITHROMYCIN 250 MG TAB PO SCH (09:07)
[2021-09-20] MEDS: HEPARIN 5,000 UNIT/1 ML VIAL SUB-Q SCH ×2 (09:07→21:08)
[2021-09-20] MEDS: ASCORBIC ACID 500 MG TAB PO SCH ×2 (09:08→21:07)
[2021-09-20] MEDS: ZINC SULFATE 220 MG CAP PO SCH ×2 (09:08→21:07)
--- NOTE | 2021-09-20 09:17 | Electrocardiograph Report ---
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
[2021-09-20] MEDS ORDERED: CHOLECALCIFEROL (VIT D3) 400 UNIT TAB PO SCH (10:00)
[2021-09-20] MEDS: oxyCODONE /ACETAMINOPHEN 5-325MG TAB PO PRN (15:10)
[2021-09-20] MEDS: METOPROLOL SUCCINATE XL 50 MG TAB PO SCH (20:36)
[2021-09-20] MEDS: cefTRIAXone/NS 2 GM/100 ML 2 GM/100 ML BAG IV SCH (20:37)
[2021-09-21 05:11] LABS: Hematocrit 31.4 % (35.5-45.6); Hemoglobin 9.9 gm/dl (11.8-15.2); Mean Corpuscular HGB Conc 32 % (32-34); Mean Corpuscular Volume 77 fl (84-94); Platelet Count 152 K/mm3 (140-440); Red Blood Count 4.06 M/mm3 (3.65-5.03); Red Cell Distribution Width 18.8 % (13.2-15.2)
[2021-09-21] MEDS: INSULIN LISPRO 100 UNIT/ML SUB-Q SCH ×4 (07:30→22:17)
[2021-09-21] MEDS: oxyCODONE /ACETAMINOPHEN 5-325MG TAB PO PRN (09:01)
[2021-09-21] MEDS: AZITHROMYCIN 250 MG TAB PO SCH (09:01)
[2021-09-21] MEDS: ASCORBIC ACID 500 MG TAB PO SCH ×2 (09:02→21:16)
[2021-09-21] MEDS: METOPROLOL SUCCINATE XL 50 MG TAB PO SCH (09:02)
[2021-09-21] MEDS: HEPARIN 5,000 UNIT/1 ML VIAL SUB-Q SCH ×2 (09:02→21:16)
[2021-09-21] MEDS: ZINC SULFATE 220 MG CAP PO SCH ×2 (09:02→21:17)
[2021-09-21] MEDS: CHOLECALCIFEROL (VIT D3) 1000 UNIT (25 mcg) TAB PO SCH (09:57)
[2021-09-21] MEDS ORDERED: methylPREDNISolone Sod Succinate 40 MG/1 ML INJ IV SCH (10:00)
[2021-09-21] MEDS: ALBUTEROL 2.5 MG/3 ML NEBU IH PRN ×3 (10:04→21:31)
--- NOTE | 2021-09-21 18:53 | Progress Note ---
Assessment and Plan Assessment and plan: #Acute hypoxemic respiratory failureimproving #Community-acquired pneumonia Pneumonia protocol: Chest x-ray, supplemental oxygen, pulse oximetry, nebulizer therapy, IV antibiotic therapy, blood culture, pulmonary toilet Chest x-ray, supplemental oxygen, pulse oximetry, nebulizer therapy Currently on 4 L nasal cannula; wean as tolerated Coronavirus PCR unremarkable. Blood cultures NGTD x24 hours #Suspected COVID-19 virus infection -COVID PCR collected, result pending -pt with history of previous COVID infection, still unvaccinated -Empiric steroids discontinued as PCR is negative #Metabolic syndrome Balanced diet, increase physical activity discharge, low-cholesterol diet #Obesity hypoventilation syndrome Balanced diet, increase physical activity discharge, outpatient pulmonary follow-up for sleep study. #Hypertension Monitor blood pressure every shift, continue medical management. #Hyperlipidemia Low-cholesterol diet, statin therapy as clinically indicated, supportive care. #hx of CHF (congestive heart failure) Strict I/O, monitor urine output every shift, daily weight, afterload reduction, monitor fluid balance, blood pressure control, supplemental oxygen, supportive care. No acute exacerbation at this time, continue medical management #Type II Diabetes with hyperglycemia -hyperglycemia likely secondary to steroid administration, Solu-Medrol frequency decreased to qday -continue SSI -Hemoglobin A1c 7.4 #Microcytic anemia Hemoglobin 9.9 Ordering iron studies. Transfuse if hemoglobin less than 7 or patient becomes symptomatic. #Advanced care planning -Disease education conducted, care plan discussed, diagnoses discussed, prognosis discussed, and patient acknowledges understanding with care plan -Time: +30 min Disposition Plan: Continue medical management Total Time Spent with Patient (Minutes): 30 minutes History Interval history: No acute events overnight. Hospitalist Physical - Constitutional Vitals: Temp Pulse Resp BP Pulse Ox 97.3 F L 67 16 139/87 97 09/21/21 18:19 09/21/21 18:19 09/21/21 10:04 09/21/21 18:19 09/21/21 15:00 General appearance: Present: mild distress, obese - EENT Eyes: Present: PERRL, EOM intact ENT: hearing intact, clear oral mucosa - Neck Neck: Present: supple, normal ROM - Respiratory Respiratory effort: normal Respiratory: bilateral: diminished (On 4 L nasal cannula) - Cardiovascular Rhythm: regular Heart Sounds: Present: S1 & S2 - Extremities Extremities: no ischemia, pulses intact, pulses symmetrical, No edema, normal te mperature, normal color, Full ROM Peripheral Pulses: within normal limits - Abdominal General gastrointestinal: soft, non-tender, non-distended, normal bowel sounds - Integumentary Integumentary: Present: clear, warm, dry - Psychiatric Psychiatric: appropriate mood/affect, cooperative - Neurologic Neurologic: CNII-XII intact, moves all extremities - Allied Health Allied health notes reviewed: nursing HEART Score - HEART Score Troponin: Troponin T 0.028 ng/mL (0.00-0.029) 09/19/21 18:42 Results - Labs CBC & Chem 7: 09/21/21 04:49 09/21/21 04:49 Labs: Laboratory Last Values WBC 8.9 K/mm3 (4.5-11.0) 09/21/21 04:49 RBC 4.06 M/mm3 (3.65-5.03) 09/21/21 04:49 Hgb 9.9 gm/dl (11.8-15.2) L 09/21/21 04:49 Hct 31.4 % (35.5-45.6) L 09/21/21 04:49 MCV 77 fl (84-94) L 09/21/21 04:49 MCH 24 pg (28-32) L 09/21/21 04:49 MCHC 32 % (32-34) 09/21/21 04:49 RDW 18.8 % (13.2-15.2) H 09/21/21 04:49 Plt Count 152 K/mm3 (140-440) 09/21/21 04:49 Lymph % (Auto) 11.7 % (13.4-35.0) L 09/20/21 06:39 [place] % (Auto) 1.2 % (0.0-7.3) 09/20/21 06:39 Eos % (Auto) 0.2 % (0.0-4.3) 09/20/21 06:39 Baso % (Auto) 0.1 % (0.0-1.8) 09/20/21 06:39 Lymph # (Auto) 0.6 K/mm3 (1.2-5.4) L 09/20/21 06:39 [place] # (Auto) 0.1 K/mm3 (0.0-0.8) 09/20/21 06:39 Eos # (Auto) 0.0 K/mm3 (0.0-0.4) 09/20/21 06:39 Baso # (Auto) 0.0 K/mm3 (0.0-0.1) 09/20/21 06:39 Add Manual Diff Complete 09/19/21 18:42 Total Counted 100 09/19/21 18:42 Seg Neutrophils % 86.8 % (40.0-70.0) H 09/20/21 06:39 Seg Neuts % (Manual) 63.0 % (40.0-70.0) 09/19/21 18:42 Band Neutrophils % 0 % 09/19/21 18:42 Lymphocytes % (Manual) 14.0 % (13.4-35.0) 09/19/21 18:42 Reactive Lymphs % (Man) 0 % 09/19/21 18:42 Monocytes % (Manual) 7.0 % (0.0-7.3) 09/19/21 18:42 Eosinophils % (Manual) 16.0 % (0.0-4.3) H 09/19/21 18:42 Basophils % (Manual) 0 % (0.0-1.8) 09/19/21 18:42 Metamyelocytes % 0 % 09/19/21 18:42 Myelocytes % 0 % 09/19/21 18:42 Promyelocytes % 0 % 09/19/21 18:42 Blast Cells % 0 % 09/19/21 18:42 Nucleated RBC % Not Reportable 09/19/21 18:42 Seg Neutrophils # 4.5 K/mm3 (1.8-7.7) 09/20/21 06:39 Seg Neutrophils # Man 2.5 K/mm3 (1.8-7.7) 09/19/21 18:42 Band Neutrophils # 0.0 K/mm3 09/19/21 18:42 Lymphocytes # (Manual) 0.6 K/mm3 (1.2-5.4) L 09/19/21 18:42 Abs React Lymphs (Man) 0.0 K/mm3 09/19/21 18:42 Monocytes # (Manual) 0.3 K/mm3 (0.0-0.8) 09/19/21 18:42 Eosinophils # (Manual) 0.6 K/mm3 (0.0-0.4) H 09/19/21 18:42 Basophils # (Manual) 0.0 K/mm3 (0.0-0.1) 09/19/21 18:42 Metamyelocytes # 0.0 K/mm3 09/19/21 18:42 Myelocytes # 0.0 K/mm3 09/19/21 18:42 Promyelocytes # 0.0 K/mm3 09/19/21 18:42 Blast Cells # 0.0 K/mm3 09/19/21 18:42 WBC Morphology Not Reportable 09/19/21 18:42 Hypersegmented Neuts Not Reportable 09/19/21 18:42 Hyposegmented Neuts Not Reportable 09/19/21 18:42 Hypogranular Neuts Not Reportable 09/19/21 18:42 Smudge Cells Not Reportable 09/19/21 18:42 Toxic Granulation Not Reportable 09/19/21 18:42 Toxic Vacuolation Not Reportable 09/19/21 18:42 Dohle Bodies Not Reportable 09/19/21 18:42 Pel[place]uet Anomaly Not Reportable 09/19/21 18:42 Topher Rods Not Reportable 09/19/21 18:42 Platelet Estimate Consistent w auto 09/19/21 18:42 Clumped Platelets Not Reportable 09/19/21 18:42 Plt Clumps, EDTA Not Reportable 09/19/21 18:42 Large Platelets Not Reportable 09/19/21 18:42 Giant Platelets Not Reportable 09/19/21 18:42 Platelet Satelliting Not Reportable 09/19/21 18:42 Plt Morphology Comment Not Reportable 09/19/21 18:42 RBC Morphology Not Reportable 09/19/21 18:42 Dimorphic RBCs Not Reportable 09/19/21 18:42 Polychromasia Not Reportable 09/19/21 18:42 Hypochromasia 1+ 09/19/21 18:42 Poikilocytosis Not Reportable 09/19/21 18:42 Anisocytosis 2+ 09/19/21 18:42 Microcytosis 1+ 09/19/21 18:42 Macrocytosis Not Reportable 09/19/21 18:42 Spherocytes Not Reportable 09/19/21 18:42 Pappenheimer Bodies Not Reportable 09/19/21 18:42 Sickle Cells Not Reportable 09/19/21 18:42 Target Cells Not Reportable 09/19/21 18:42 Tear Drop Cells Not Reportable 09/19/21 18:42 Ovalocytes Not Reportable 09/19/21 18:42 Helmet Cells Not Reportable 09/19/21 18:42 [place] Bodies Not Reportable 09/19/21 18:42 [place] Rings Not Reportable 09/19/21 18:42 Sandra Cells Not Reportable 09/19/21 18:42 Bite Cells Not Reportable 09/19/21 18:42 Crenated Cell Not Reportable 09/19/21 18:42 Elliptocytes Not Reportable 09/19/21 18:42 Acanthocytes (Spur) Not Reportable 09/19/21 18:42 Rouleaux Not Reportable 09/19/21 18:42 Hemoglobin C Crystals Not Reportable 09/19/21 18:42 Schistocytes Not Reportable 09/19/21 18:42 Malaria parasites Not Reportable 09/19/21 18:42 Sushil Bodies Not Reportable 09/19/21 18:42 Hem Pathologist Commnt No 09/19/21 18:42 Sodium 138 mmol/L (137-145) 09/21/21 04:49 Potassium 4.4 mmol/L (3.6-5.0) 09/21/21 04:49 Chloride 102.8 mmol/L (98-107) 09/21/21 04:49 Carbon Dioxide 24 mmol/L (22-30) 09/21/21 04:49 Anion Gap 16 mmol/L 09/21/21 04:49 BUN 33 mg/dL (9-20) H 09/21/21 04:49 Creatinine 1.3 mg/dL (0.8-1.3) 09/21/21 04:49 Estimated GFR 55 ml/min 09/21/21 04:49 BUN/Creatinine Ratio 25 % 09/21/21 04:49 Glucose 140 mg/dL (75-100) H 09/21/21 04:49 POC Glucose 259 mg/dL (70-105) H 09/21/21 16:14 Hemoglobin A1c 7.4 % (4-6) H 09/21/21 04:49 Calcium 9.0 mg/dL (8.4-10.2) 09/21/21 04:49 Total Bilirubin 0.30 mg/dL (0.1-1.2) 09/19/21 18:42 AST 20 units/L (5-40) 09/19/21 18:42 ALT 17 units/L (7-56) 09/19/21 18:42 Alkaline Phosphatase 91 units/L (35-129) 09/19/21 18:42 Troponin T 0.028 ng/mL (0.00-0.029) 09/19/21 18:42 NT-Pro-B Natriuret Pep 350.6 pg/mL (0-900) 09/19/21 18:42 Total Protein 6.7 g/dL (6.3-8.2) 09/19/21 18:42 Albumin 3.0 g/dL (3.9-5) L 09/19/21 18:42 Albumin/Globulin Ratio 0.8 % 09/19/21 18:42 Coronavirus (PCR) Negative (Negative) 09/20/21 08:30 Microbiology: Microbiology 09/19/21 20:56 Peripheral/Venous Blood Culture - Preliminary NO GROWTH AFTER 24 HOURS 09/19/21 20:28 Peripheral/Venous Blood Culture - Preliminary NO GROWTH AFTER 24 HOURS Milian/IV: Voiding Method Toilet Active Medications - Current Medications Current Medications: Generic Name Dose Route Start Last Admin Trade Name Freq PRN Reason Stop Dose Admin Acetaminophen 650 mg 09/19/21 21:30 Acetaminophen 325 Mg Tab PO Q4H PRN Pain MILD(1-3)/Fever >100.5/CORTÉS Albuterol 2.5 mg 09/19/21 21:30 09/21/21 10:04 Albuterol 2.5 Mg/3 Ml Nebu IH 2.5 mg Q4HRT PRN Administration Shortness Of Breath Ascorbic Acid 500 mg 09/19/21 22:00 09/21/21 09:02 Ascorbic Acid 500 Mg Tab PO 500 mg BID ARUN Administration Azithromycin 500 mg 09/20/21 10:00 09/21/21 09:01 Azithromycin 250 Mg Tab PO 09/23/21 10:01 500 mg QDAY ARUN Administration Protocol Cholecalciferol 1,000 unit 09/21/21 10:00 09/21/21 09:57 Cholecalciferol (Vit D3) 1000 Unit (25 Mcg) Tab PO 1,000 unit DAILY ARUN Administration Heparin Sodium (Porcine) 5,000 unit 09/19/21 22:00 09/21/21 09:02 Heparin 5,000 Unit/1 Ml Vial SUB-Q 5,000 unit Q12HR ARUN Administration Hydromorphone HCl 0.5 mg 09/19/21 19:48 Hydromorphone 1 Mg/1 Ml Inj IV Q23H PRN Pain , Severe (7-10) Ceftriaxone Sodium 2 gm in 100 mls @ 200 mls/hr 09/19/21 20:00 09/20/21 20:37 Rocephin/Ns 2 Gm/100 Ml IV 09/23/21 20:29 200 mls/hr Q24H ARUN Administration Protocol Insulin Human Lispro 0 unit 09/20/21 01:48 09/21/21 16:30 Insulin Lispro 100 Unit/Ml SUB-Q 4 unit ACHS ARUN Administration Protocol Metoprolol Succinate 50 mg 09/20/21 20:00 09/21/21 09:02 Metoprolol Succinate Xl 50 Mg Tab PO 50 mg QDAY ARUN Administration Ondansetron HCl 4 mg 09/19/21 19:48 Ondansetron 4 Mg/2 Ml Inj IV Q8H PRN Nausea And Vomiting Oxycodone/Acetaminophen 1 tab 09/19/21 19:48 09/21/21 09:01 Oxycodone /Acetaminophen 5-325mg Tab PO 1 tab Q6H PRN Administration Pain, Moderate (4-6) Sodium Chloride 10 ml 09/19/21 22:00 09/21/21 09:09 Sodium Chloride 0.9% 10 Ml Flush Syringe IV 10 ml BID ARUN Administration Sodium Chloride 10 ml 09/19/21 19:48 Sodium Chloride 0.9% 10 Ml Flush Syringe IV PRN PRN LINE FLUSH Zinc Sulfate 220 mg 09/19/21 22:00 09/21/21 09:02 Zinc Sulfate 220 Mg Cap PO 220 mg BID ARUN Administration
[2021-09-21] MEDS: cefTRIAXone/NS 2 GM/100 ML 2 GM/100 ML BAG IV SCH (20:55)
[2021-09-21 22:03] LABS: Iron 23 ug/dL (49-181); Total Iron Binding Capacity 252 mcg/dL (250-450)
[2021-09-22] MEDS ORDERED: DEXTROSE 50% IN WATER (25GM) 50 ML SYRINGE IV PRN (08:16)
[2021-09-22] MEDS: INSULIN LISPRO 100 UNIT/ML SUB-Q SCH ×4 (08:23→22:30)
[2021-09-22] MEDS ORDERED: DEXTROSE 10% *Hypoglycemia IV PRN (08:58)
[2021-09-22] MEDS: INSULIN NPH, HUMAN 100 UNIT/1 ML SUB-Q SCH (09:56)
[2021-09-22] MEDS: METOPROLOL SUCCINATE XL 50 MG TAB PO SCH (09:56)
[2021-09-22] MEDS: AZITHROMYCIN 250 MG TAB PO SCH (10:01)
[2021-09-22] MEDS: ZINC SULFATE 220 MG CAP PO SCH ×2 (10:01→22:26)
[2021-09-22] MEDS: NIFEdipine XL 30 MG TAB PO SCH (10:01)
[2021-09-22] MEDS: CHOLECALCIFEROL (VIT D3) 1000 UNIT (25 mcg) TAB PO SCH (10:02)
[2021-09-22] MEDS: HEPARIN 5,000 UNIT/1 ML VIAL SUB-Q SCH ×2 (10:02→22:30)
[2021-09-22] MEDS: ASCORBIC ACID 500 MG TAB PO SCH ×2 (10:02→22:26)
[2021-09-22] MEDS: ALBUTEROL 2.5 MG/3 ML NEBU IH PRN ×2 (10:51→20:28)
--- NOTE | 2021-09-22 12:04 | Progress Note ---
Assessment and Plan Assessment and plan: #Acute hypoxemic respiratory failureimproving #Community-acquired pneumonia Pneumonia protocol: Chest x-ray, supplemental oxygen, pulse oximetry, nebulizer therapy, IV antibiotic therapy, blood culture, pulmonary toilet Chest x-ray, supplemental oxygen, pulse oximetry, nebulizer therapy Currently on 3 L nasal cannula; wean as tolerated Coronavirus PCR unremarkable. Blood cultures NGTD x24 hours. Antibiotics (azithromycin 500 mg daily and Rocephin 1 g daily) will complete on 09/23/2021 for a total of 5-day course. #Suspected COVID-19 virus infectionruled out -COVID PCR collected, result pending -pt with history of previous COVID infection, still unvaccinated -Empiric steroids discontinued as PCR is negative #Metabolic syndrome Balanced diet, increase physical activity discharge, low-cholesterol diet #Obesity hypoventilation syndrome Balanced diet, increase physical activity discharge, outpatient pulmonary follow-up for sleep study. #Hypertension Monitor blood pressure every shift, continue medical management. Starting nifedipine 30 mg daily for better blood pressure control #Hyperlipidemia Low-cholesterol diet, statin therapy as clinically indicated, supportive care. #hx of CHF (congestive heart failure) Strict I/O, monitor urine output every shift, daily weight, afterload red uction, monitor fluid balance, blood pressure control, supplemental oxygen, supportive care. No acute exacerbation at this time, continue medical management #Type II Diabetes with hyperglycemia -hyperglycemia likely secondary to steroid administration, Solu-Medrol frequency decreased to qday -continue SSI and scheduling NPH 10 units daily for basal control in addition to Metformin 1000 mg twice daily -Hemoglobin A1c 7.4 #Microcytic anemia Hemoglobin 9.9 Ordering iron studies. Transfuse if hemoglobin less than 7 or patient becomes symptomatic. #Mild protein caloric malnutrition Albumin 3.0 Starting dietary supplements #Advanced care planning -Disease education conducted, care plan discussed, diagnoses discussed, prognosis discussed, and patient acknowledges understanding with care plan -Time: +30 min Disposition Plan: Continue medical management Total Time Spent with Patient (Minutes): 30 minutes History Interval history: No acute events overnight. Hospitalist Physical - Constitutional Vitals: Temp Pulse Resp BP Pulse Ox 97.8 F 73 19 157/79 99 09/22/21 10:00 09/22/21 10:51 09/22/21 10:51 09/22/21 10:00 09/22/21 10:01 General appearance: Present: no acute distress, obese - EENT Eyes: Present: PERRL, EOM intact ENT: hearing intact, clear oral mucosa - Neck Neck: Present: supple, normal ROM - Respiratory Respiratory effort: normal Respiratory: bilateral: diminished (On 3 L nasal cannula) - Cardiovascular Rhythm: regular Heart Sounds: Present: S1 & S2 - Extremities Extremities: no ischemia, pulses intact, pulses symmetrical, No edema, normal temperature, normal color, Full ROM Peripheral Pulses: within normal limits - Abdominal General gastrointestinal: soft, non-tender, non-distended, normal bowel sounds - Integumentary Integumentary: Present: clear, warm, dry - Psychiatric Psychiatric: appropriate mood/affect, intact judgment & insight, cooperative - Neurologic Neurologic: CNII-XII intact, moves all extremities - Allied Health Allied health notes reviewed: nursing HEART Score - HEART Score Troponin: Troponin T 0.028 ng/mL (0.00-0.029) 09/19/21 18:42 Results - Labs CBC & Chem 7: 09/21/21 04:49 09/21/21 04:49 Labs: Laboratory Last Values WBC 8.9 K/mm3 (4.5-11.0) 09/21/21 04:49 RBC 4.06 M/mm3 (3.65-5.03) 09/21/21 04:49 Hgb 9.9 gm/dl (11.8-15.2) L 09/21/21 04:49 Hct 31.4 % (35.5-45.6) L 09/21/21 04:49 MCV 77 fl (84-94) L 09/21/21 04:49 MCH 24 pg (28-32) L 09/21/21 04:49 MCHC 32 % (32-34) 09/21/21 04:49 RDW 18.8 % (13.2-15.2) H 09/21/21 04:49 Plt Count 152 K/mm3 (140-440) 09/21/21 04:49 Lymph % (Auto) 11.7 % (13.4-35.0) L 09/20/21 06:39 [place] % (Auto) 1.2 % (0.0-7.3) 09/20/21 06:39 Eos % (Auto) 0.2 % (0.0-4.3) 09/20/21 06:39 Baso % (Auto) 0.1 % (0.0-1.8) 09/20/21 06:39 Lymph # (Auto) 0.6 K/mm3 (1.2-5.4) L 09/20/21 06:39 [place] # (Auto) 0.1 K/mm3 (0.0-0.8) 09/20/21 06:39 Eos # (Auto) 0.0 K/mm3 (0.0-0.4) 09/20/21 06:39 Baso # (Auto) 0.0 K/mm3 (0.0-0.1) 09/20/21 06:39 Add Manual Diff Complete 09/19/21 18:42 Total Counted 100 09/19/21 18:42 Seg Neutrophils % 86.8 % (40.0-70.0) H 09/20/21 06:39 Seg Neuts % (Manual) 63.0 % (40.0-70.0) 09/19/21 18:42 Band Neutrophils % 0 % 09/19/21 18:42 Lymphocytes % (Manual) 14.0 % (13.4-35.0) 09/19/21 18:42 Reactive Lymphs % (Man) 0 % 09/19/21 18:42 Monocytes % (Manual) 7.0 % (0.0-7.3) 09/19/21 18:42 Eosinophils % (Manual) 16.0 % (0.0-4.3) H 09/19/21 18:42 Basophils % (Manual) 0 % (0.0-1.8) 09/19/21 18:42 Metamyelocytes % 0 % 09/19/21 18:42 Myelocytes % 0 % 09/19/21 18:42 Promyelocytes % 0 % 09/19/21 18:42 Blast Cells % 0 % 09/19/21 18:42 Nucleated RBC % Not Reportable 09/19/21 18:42 Seg Neutrophils # 4.5 K/mm3 (1.8-7.7) 09/20/21 06:39 Seg Neutrophils # Man 2.5 K/mm3 (1.8-7.7) 09/19/21 18:42 Band Neutrophils # 0.0 K/mm3 09/19/21 18:42 Lymphocytes # (Manual) 0.6 K/mm3 (1.2-5.4) L 09/19/21 18:42 Abs React Lymphs (Man) 0.0 K/mm3 09/19/21 18:42 Monocytes # (Manual) 0.3 K/mm3 (0.0-0.8) 09/19/21 18:42 Eosinophils # (Manual) 0.6 K/mm3 (0.0-0.4) H 09/19/21 18:42 Basophils # (Manual) 0.0 K/mm3 (0.0-0.1) 09/19/21 18:42 Metamyelocytes # 0.0 K/mm3 09/19/21 18:42 Myelocytes # 0.0 K/mm3 09/19/21 18:42 Promyelocytes # 0.0 K/mm3 09/19/21 18:42 Blast Cells # 0.0 K/mm3 09/19/21 18:42 WBC Morphology Not Reportable 09/19/21 18:42 Hypersegmented Neuts Not Reportable 09/19/21 18:42 Hyposegmented Neuts Not Reportable 09/19/21 18:42 Hypogranular Neuts Not Reportable 09/19/21 18:42 Smudge Cells Not Reportable 09/19/21 18:42 Toxic Granulation Not Reportable 09/19/21 18:42 Toxic Vacuolation Not Reportable 09/19/21 18:42 Dohle Bodies Not Reportable 09/19/21 18:42 Pelger-Huet Anomaly Not Reportable 09/19/21 18:42 Tpoher Rods Not Reportable 09/19/21 18:42 Platelet Estimate Consistent w auto 09/19/21 18:42 Clumped Platelets Not Reportable 09/19/21 18:42 Plt Clumps, EDTA Not Reportable 09/19/21 18:42 Large Platelets Not Reportable 09/19/21 18:42 Giant Platelets Not Reportable 09/19/21 18:42 Platelet Satelliting Not Reportable 09/19/21 18:42 Plt Morphology Comment Not Reportable 09/19/21 18:42 RBC Morphology Not Reportable 09/19/21 18:42 Dimorphic RBCs Not Reportable 09/19/21 18:42 Polychromasia Not Reportable 09/19/21 18:42 Hypochromasia 1+ 09/19/21 18:42 Poikilocytosis Not Reportable 09/19/21 18:42 Anisocytosis 2+ 09/19/21 18:42 Microcytosis 1+ 09/19/21 18:42 Macrocytosis Not Reportable 09/19/21 18:42 Spherocytes Not Reportable 09/19/21 18:42 Pappenheimer Bodies Not Reportable 09/19/21 18:42 Sickle Cells Not Reportable 09/19/21 18:42 Target Cells Not Reportable 09/19/21 18:42 Tear Drop Cells Not Reportable 09/19/21 18:42 Ovalocytes Not Reportable 09/19/21 18:42 Helmet Cells Not Reportable 09/19/21 18:42 [place] Bodies Not Reportable 09/19/21 18:42 [place] Rings Not Reportable 09/19/21 18:42 Sandra Cells Not Reportable 09/19/21 18:42 Bite Cells Not Reportable 09/19/21 18:42 Crenated Cell Not Reportable 09/19/21 18:42 Elliptocytes Not Reportable 09/19/21 18:42 Acanthocytes (Spur) Not Reportable 09/19/21 18:42 Rouleaux Not Reportable 09/19/21 18:42 Hemoglobin C Crystals Not Reportable 09/19/21 18:42 Schistocytes Not Reportable 09/19/21 18:42 Malaria parasites Not Reportable 09/19/21 18:42 Sushil Bodies Not Reportable 09/19/21 18:42 Hem Pathologist Commnt No 09/19/21 18:42 Sodium 138 mmol/L (137-145) 09/21/21 04:49 Potassium 4.4 mmol/L (3.6-5.0) 09/21/21 04:49 Chloride 102.8 mmol/L (98-107) 09/21/21 04:49 Carbon Dioxide 24 mmol/L (22-30) 09/21/21 04:49 Anion Gap 16 mmol/L 09/21/21 04:49 BUN 33 mg/dL (9-20) H 09/21/21 04:49 Creatinine 1.3 mg/dL (0.8-1.3) 09/21/21 04:49 Estimated GFR 55 ml/min 09/21/21 04:49 BUN/Creatinine Ratio 25 % 09/21/21 04:49 Glucose 140 mg/dL (75-100) H 09/21/21 04:49 POC Glucose 257 mg/dL (70-105) H 09/21/21 21:58 Hemoglobin A1c 7.4 % (4-6) H 09/21/21 04:49 Calcium 9.0 mg/dL (8.4-10.2) 09/21/21 04:49 Iron 23 ug/dL (49-181) L 09/21/21 20:24 TIBC 252 mcg/dL (250-450) 09/21/21 20:24 Total Bilirubin 0.30 mg/dL (0.1-1.2) 09/19/21 18:42 AST 20 units/L (5-40) 09/19/21 18:42 ALT 17 units/L (7-56) 09/19/21 18:42 Alkaline Phosphatase 91 units/L (35-129) 09/19/21 18:42 Troponin T 0.028 ng/mL (0.00-0.029) 09/19/21 18:42 NT-Pro-B Natriuret Pep 350.6 pg/mL (0-900) 09/19/21 18:42 Total Protein 6.7 g/dL (6.3-8.2) 09/19/21 18:42 Albumin 3.0 g/dL (3.9-5) L 09/19/21 18:42 Albumin/Globulin Ratio 0.8 % 09/19/21 18:42 Coronavirus (PCR) Negative (Negative) 09/20/21 08:30 Microbiology: Microbiology 09/19/21 20:56 Peripheral/Venous Blood Culture - Preliminary NO GROWTH AFTER 48 HOURS 09/19/21 20:28 Peripheral/Venous Blood Culture - Preliminary NO GROWTH AFTER 48 HOURS Milian/IV: Voiding Method Toilet Active Medications - Current Medications Current Medications: Generic Name Dose Route Start Last Admin Trade Name Freq PRN Reason Stop Dose Admin Acetaminophen 650 mg 09/19/21 21:30 Acetaminophen 325 Mg Tab PO Q4H PRN Pain MILD(1-3)/Fever >100.5/CORTÉS Albuterol 2.5 mg 09/19/21 21:30 09/22/21 10:51 Albuterol 2.5 Mg/3 Ml Nebu IH 2.5 mg Q4HRT PRN Administration Shortness Of Breath Ascorbic Acid 500 mg 09/19/21 22:00 09/22/21 10:02 Ascorbic Acid 500 Mg Tab PO 500 mg BID ARUN Administration Azithromycin 500 mg 09/20/21 10:00 09/22/21 10:01 Azithromycin 250 Mg Tab PO 09/23/21 10:01 500 mg QDAY ARUN Administration Protocol Cholecalciferol 1,000 unit 09/21/21 10:00 09/22/21 10:02 Cholecalciferol (Vit D3) 1000 Unit (25 Mcg) Tab PO 1,000 unit DAILY ARUN Administration Dextrose 0 ml 09/22/21 08:58 Dextrose 10% *Hypoglycemia IV PRN PRN Hypoglycemia Heparin Sodium (Porcine) 5,000 unit 09/19/21 22:00 09/22/21 10:02 Heparin 5,000 Unit/1 Ml Vial SUB-Q 5,000 unit Q12HR ARUN Administration Hydromorphone HCl 0.5 mg 09/19/21 19:48 Hydromorphone 1 Mg/1 Ml Inj IV Q23H PRN Pain , Severe (7-10) Ceftriaxone Sodium 2 gm in 100 mls @ 200 mls/hr 09/19/21 20:00 09/21/21 20:55 Rocephin/Ns 2 Gm/100 Ml IV 09/23/21 20:29 200 mls/hr Q24H ARUN Administration Protocol Insulin Human Lispro 0 unit 09/20/21 01:48 09/22/21 08:23 Insulin Lispro 100 Unit/Ml SUB-Q 2 unit ACHS ARUN Administration Protocol Insulin Human NPH 10 unit 09/22/21 09:00 09/22/21 09:56 Insulin Nph, Human 100 Unit/1 Ml SUB-Q 10 unit QDDIAB ARUN Administration Metformin HCl 1,000 mg 09/22/21 09:00 Metformin Xr 500mg Tab PO QDDIAB [facility] Metoprolol Succinate 50 mg 09/20/21 20:00 09/22/21 09:56 Metoprolol Succinate Xl 50 Mg Tab PO 50 mg QDAY ARUN Administration Nifedipine 30 mg 09/22/21 10:00 09/22/21 10:01 Nifedipine Xl 30 Mg Tab PO 30 mg QDAY ARUN Administration Ondansetron HCl 4 mg 09/19/21 19:48 Ondansetron 4 Mg/2 Ml Inj IV Q8H PRN Nausea And Vomiting Oxycodone/Acetaminophen 1 tab 09/19/21 19:48 09/21/21 09:01 Oxycodone /Acetaminophen 5-325mg Tab PO 1 tab Q6H PRN Administration Pain, Moderate (4-6) Sodium Chloride 10 ml 09/19/21 22:00 09/22/21 10:02 Sodium Chloride 0.9% 10 Ml Flush Syringe IV 10 ml BID ARUN Administration Sodium Chloride 10 ml 09/19/21 19:48 Sodium Chloride 0.9% 10 Ml Flush Syringe IV PRN PRN LINE FLUSH Zinc Sulfate 220 mg 09/19/21 22:00 09/22/21 10:01 Zinc Sulfate 220 Mg Cap PO 220 mg BID ARUN Administration
[2021-09-22] MEDS: metFORMIN XR 500MG TAB PO SCH (13:44)
[2021-09-22] MEDS: cefTRIAXone/NS 2 GM/100 ML 2 GM/100 ML BAG IV SCH (20:31)
[2021-09-23] MEDS ORDERED: guaiFENesin 200 MG TAB PO PRN (00:13)
[2021-09-23] MEDS: INSULIN LISPRO 100 UNIT/ML SUB-Q SCH ×4 (08:21→22:53)
[2021-09-23] MEDS: metFORMIN XR 500MG TAB PO SCH (08:21)
[2021-09-23] MEDS: oxyCODONE /ACETAMINOPHEN 5-325MG TAB PO PRN (08:25)
[2021-09-23] MEDS: INSULIN NPH, HUMAN 100 UNIT/1 ML SUB-Q SCH (08:25)
[2021-09-23] MEDS: AZITHROMYCIN 250 MG TAB PO SCH (09:38)
[2021-09-23] MEDS: ASCORBIC ACID 500 MG TAB PO SCH ×2 (09:38→22:27)
[2021-09-23] MEDS: METOPROLOL SUCCINATE XL 50 MG TAB PO SCH (09:38)
[2021-09-23] MEDS: HEPARIN 5,000 UNIT/1 ML VIAL SUB-Q SCH ×2 (09:38→22:29)
[2021-09-23] MEDS: NIFEdipine XL 30 MG TAB PO SCH (09:39)
[2021-09-23] MEDS: CHOLECALCIFEROL (VIT D3) 1000 UNIT (25 mcg) TAB PO SCH (09:42)
[2021-09-23] MEDS: ZINC SULFATE 220 MG CAP PO SCH ×2 (09:42→22:27)
[2021-09-23] MEDS: ALBUTEROL 2.5 MG/3 ML NEBU IH PRN ×2 (09:57→19:40)
[2021-09-23] MEDS ORDERED: IPRATROPIUM/ALBUTEROL SULFATE 3 ML AMPUL.NEB IH NR (10:45)
--- NOTE | 2021-09-23 13:45 | Progress Note ---
Assessment and Plan Assessment and plan: #Acute hypoxemic respiratory failureimproving #Community-acquired pneumonia Pneumonia protocol: Chest x-ray, supplemental oxygen, pulse oximetry, nebulizer therapy, IV antibiotic therapy, blood culture, pulmonary toilet Chest x-ray, supplemental oxygen, pulse oximetry, nebulizer therapy Currently on 3 L nasal cannula; wean as tolerated. Pending walk test. Coronavirus PCR unremarkable. Blood cultures NGTD x24 hours. Antibiotics (azithromycin 500 mg daily and Rocephin 1 g daily) will complete on 09/23/2021 for a total of 5-day course. #Suspected COVID-19 virus infectionruled out -COVID PCR collected, result pending -pt with history of previous COVID infection, still unvaccinated -Empiric steroids discontinued as PCR is negative #Metabolic syndrome Balanced diet, increase physical activity discharge, low-cholesterol diet #Obesity hypoventilation syndrome Balanced diet, increase physical activity discharge, outpatient pulmonary follow-up for sleep study. #Hypertension Monitor blood pressure every shift, continue medical management. Starting nifedipine 30 mg daily for better blood pressure control #Hyperlipidemia Low-cholesterol diet, statin therapy as clinically indicated, supportive care. #hx of CHF (congestive heart failure) Strict I/O, monitor urine output every shift, daily weight, afterload reduction, monitor fluid balance, blood pressure control, supplemental oxygen, supportive care. No acute exacerbation at this time, continue medical management #Type II Diabetes with hyperglycemia -hyperglycemia likely secondary to steroid administration, Solu-Medrol frequency decreased to qday -continue SSI and scheduling NPH 10 units daily for basal control in addition to Metformin 1000 mg twice daily -Hemoglobin A1c 7.4 #Microcytic anemia Hemoglobin 9.9 Ordering iron studies. Transfuse if hemoglobin less than 7 or patient becomes symptomatic. #Mild protein caloric malnutrition Albumin 3.0 Starting dietary supplements #Obesity #Weight loss counseling #Exercise counseling - BMI 39.5 - Counseled patient on the importance of weight loss, incorporating exercise, and dietary changes (lean meats, fresh fruits and vegetables, and water intake). Patient expresses understanding. - Time: + 15 min #Advanced care planning -Disease education conducted, care plan discussed, diagnoses discussed, prognosis discussed, and patient acknowledges understanding with care plan -Time: +30 min Disposition Plan: Continue medical management Total Time Spent with Patient (Minutes): 30 min History Interval history: No acute events overnight. Hospitalist Physical - Constitutional Vitals: Temp Pulse Resp BP Pulse Ox 98.6 F 70 18 132/53 98 09/23/21 04:35 09/23/21 09:58 09/23/21 09:58 09/23/21 04:35 09/23/21 10:16 General appearance: Present: no acute distress, well-nourished, obese - EENT Eyes: Present: PERRL, EOM intact ENT: hearing intact, clear oral mucosa, dentition normal - Neck Neck: Present: supple, normal ROM - Respiratory Respiratory effort: normal Respiratory: bilateral: CTA (3 L nasal cannula) - Cardiovascular Rhythm: regular Heart Sounds: Present: S1 & S2 - Extremities Extremities: no ischemia, pulses intact, pulses symmetrical, No edema, normal temperature, normal color, Full ROM Peripheral Pulses: within normal limits - Abdominal General gastrointestinal: soft, non-tender, non-distended, normal bowel sounds - Integumentary Integumentary: Present: clear, warm, dry - Psychiatric Psychiatric: appropriate mood/affect, intact judgment & insight, cooperative - Neurologic Neurologic: CNII-XII intact, moves all extremities - Allied Health Allied health notes reviewed: nursing HEART Score - HEART Score Troponin: Troponin T 0.028 ng/mL (0.00-0.029) 09/19/21 18:42 Results - Labs CBC & Chem 7: 09/21/21 04:49 09/21/21 04:49 Labs: Laboratory Last Values WBC 8.9 K/mm3 (4.5-11.0) 09/21/21 04:49 RBC 4.06 M/mm3 (3.65-5.03) 09/21/21 04:49 Hgb 9.9 gm/dl (11.8-15.2) L 09/21/21 04:49 Hct 31.4 % (35.5-45.6) L 09/21/21 04:49 MCV 77 fl (84-94) L 09/21/21 04:49 MCH 24 pg (28-32) L 09/21/21 04:49 MCHC 32 % (32-34) 09/21/21 04:49 RDW 18.8 % (13.2-15.2) H 09/21/21 04:49 Plt Count 152 K/mm3 (140-440) 09/21/21 04:49 Lymph % (Auto) 11.7 % (13.4-35.0) L 09/20/21 06:39 [place] % (Auto) 1.2 % (0.0-7.3) 09/20/21 06:39 Eos % (Auto) 0.2 % (0.0-4.3) 09/20/21 06:39 Baso % (Auto) 0.1 % (0.0-1.8) 09/20/21 06:39 Lymph # (Auto) 0.6 K/mm3 (1.2-5.4) L 09/20/21 06:39 [place] # (Auto) 0.1 K/mm3 (0.0-0.8) 09/20/21 06:39 Eos # (Auto) 0.0 K/mm3 (0.0-0.4) 09/20/21 06:39 Baso # (Auto) 0.0 K/mm3 (0.0-0.1) 09/20/21 06:39 Add Manual Diff Complete 09/19/21 18:42 Total Counted 100 09/19/21 18:42 Seg Neutrophils % 86.8 % (40.0-70.0) H 09/20/21 06:39 Seg Neuts % (Manual) 63.0 % (40.0-70.0) 09/19/21 18:42 Band Neutrophils % 0 % 09/19/21 18:42 Lymphocytes % (Manual) 14.0 % (13.4-35.0) 09/19/21 18:42 Reactive Lymphs % (Man) 0 % 09/19/21 18:42 Monocytes % (Manual) 7.0 % (0.0-7.3) 09/19/21 18:42 Eosinophils % (Manual) 16.0 % (0.0-4.3) H 09/19/21 18:42 Basophils % (Manual) 0 % (0.0-1.8) 09/19/21 18:42 Metamyelocytes % 0 % 09/19/21 18:42 Myelocytes % 0 % 09/19/21 18:42 Promyelocytes % 0 % 09/19/21 18:42 Blast Cells % 0 % 09/19/21 18:42 Nucleated RBC % Not Reportable 09/19/21 18:42 Seg Neutrophils # 4.5 K/mm3 (1.8-7.7) 09/20/21 06:39 Seg Neutrophils # Man 2.5 K/mm3 (1.8-7.7) 09/19/21 18:42 Band Neutrophils # 0.0 K/mm3 09/19/21 18:42 Lymphocytes # (Manual) 0.6 K/mm3 (1.2-5.4) L 09/19/21 18:42 Abs React Lymphs (Man) 0.0 K/mm3 09/19/21 18:42 Monocytes # (Manual) 0.3 K/mm3 (0.0-0.8) 09/19/21 18:42 Eosinophils # (Manual) 0.6 K/mm3 (0.0-0.4) H 09/19/21 18:42 Basophils # (Manual) 0.0 K/mm3 (0.0-0.1) 09/19/21 18:42 Metamyelocytes # 0.0 K/mm3 09/19/21 18:42 Myelocytes # 0.0 K/mm3 09/19/21 18:42 Promyelocytes # 0.0 K/mm3 09/19/21 18:42 Blast Cells # 0.0 K/mm3 09/19/21 18:42 WBC Morphology Not Reportable 09/19/21 18:42 Hypersegmented Neuts Not Reportable 09/19/21 18:42 Hyposegmented Neuts Not Reportable 09/19/21 18:42 Hypogranular Neuts Not Reportable 09/19/21 18:42 Smudge Cells Not Reportable 09/19/21 18:42 Toxic Granulation Not Reportable 09/19/21 18:42 Toxic Vacuolation Not Reportable 09/19/21 18:42 Dohle Bodies Not Reportable 09/19/21 18:42 Pelger-Huet Anomaly Not Reportable 09/19/21 18:42 Topher Rods Not Reportable 09/19/21 18:42 Platelet Estimate Consistent w auto 09/19/21 18:42 Clumped Platelets Not Reportable 09/19/21 18:42 Plt Clumps, EDTA Not Reportable 09/19/21 18:42 Large Platelets Not Reportable 09/19/21 18:42 Giant Platelets Not Reportable 09/19/21 18:42 Platelet Satelliting Not Reportable 09/19/21 18:42 Plt Morphology Comment Not Reportable 09/19/21 18:42 RBC Morphology Not Reportable 09/19/21 18:42 Dimorphic RBCs Not Reportable 09/19/21 18:42 Polychromasia Not Reportable 09/19/21 18:42 Hypochromasia 1+ 09/19/21 18:42 Poikilocytosis Not Reportable 09/19/21 18:42 Anisocytosis 2+ 09/19/21 18:42 Microcytosis 1+ 09/19/21 18:42 Macrocytosis Not Reportable 09/19/21 18:42 Spherocytes Not Reportable 09/19/21 18:42 Pappenheimer Bodies Not Reportable 09/19/21 18:42 Sickle Cells Not Reportable 09/19/21 18:42 Target Cells Not Reportable 09/19/21 18:42 Tear Drop Cells Not Reportable 09/19/21 18:42 Ovalocytes Not Reportable 09/19/21 18:42 Helmet Cells Not Reportable 09/19/21 18:42 [place] Bodies Not Reportable 09/19/21 18:42 [place] Rings Not Reportable 09/19/21 18:42 Sandra Cells Not Reportable 09/19/21 18:42 Bite Cells Not Reportable 09/19/21 18:42 Crenated Cell Not Reportable 09/19/21 18:42 Elliptocytes Not Reportable 09/19/21 18:42 Acanthocytes (Spur) Not Reportable 09/19/21 18:42 Rouleaux Not Reportable 09/19/21 18:42 Hemoglobin C Crystals Not Reportable 09/19/21 18:42 Schistocytes Not Reportable 09/19/21 18:42 Malaria parasites Not Reportable 09/19/21 18:42 Sushil Bodies Not Reportable 09/19/21 18:42 Hem Pathologist Commnt No 09/19/21 18:42 Sodium 138 mmol/L (137-145) 09/21/21 04:49 Potassium 4.4 mmol/L (3.6-5.0) 09/21/21 04:49 Chloride 102.8 mmol/L (98-107) 09/21/21 04:49 Carbon Dioxide 24 mmol/L (22-30) 09/21/21 04:49 Anion Gap 16 mmol/L 09/21/21 04:49 BUN 33 mg/dL (9-20) H 09/21/21 04:49 Creatinine 1.3 mg/dL (0.8-1.3) 09/21/21 04:49 Estimated GFR 55 ml/min 09/21/21 04:49 BUN/Creatinine Ratio 25 % 09/21/21 04:49 Glucose 140 mg/dL (75-100) H 09/21/21 04:49 POC Glucose 257 mg/dL (70-105) H 09/21/21 21:58 Hemoglobin A1c 7.4 % (4-6) H 09/21/21 04:49 Calcium 9.0 mg/dL (8.4-10.2) 09/21/21 04:49 Iron 23 ug/dL (49-181) L 09/21/21 20:24 TIBC 252 mcg/dL (250-450) 09/21/21 20:24 Total Bilirubin 0.30 mg/dL (0.1-1.2) 09/19/21 18:42 AST 20 units/L (5-40) 09/19/21 18:42 ALT 17 units/L (7-56) 09/19/21 18:42 Alkaline Phosphatase 91 units/L (35-129) 09/19/21 18:42 Troponin T 0.028 ng/mL (0.00-0.029) 09/19/21 18:42 NT-Pro-B Natriuret Pep 350.6 pg/mL (0-900) 09/19/21 18:42 Total Protein 6.7 g/dL (6.3-8.2) 09/19/21 18:42 Albumin 3.0 g/dL (3.9-5) L 09/19/21 18:42 Albumin/Globulin Ratio 0.8 % 09/19/21 18:42 Coronavirus (PCR) Negative (Negative) 09/20/21 08:30 Microbiology: Microbiology 09/19/21 20:56 Peripheral/Venous Blood Culture - Preliminary NO GROWTH AFTER 72 HOURS 09/19/21 20:28 Peripheral/Venous Blood Culture - Preliminary NO GROWTH AFTER 72 HOURS Milian/IV: Voiding Method Urinal Active Medications - Current Medications Current Medications: Generic Name Dose Route Start Last Admin Trade Name Freq PRN Reason Stop Dose Admin Acetaminophen 650 mg 09/19/21 21:30 Acetaminophen 325 Mg Tab PO Q4H PRN Pain MILD(1-3)/Fever >100.5/CORTÉS Albuterol 2.5 mg 09/19/21 21:30 09/23/21 09:57 Albuterol 2.5 Mg/3 Ml Nebu IH 2.5 mg Q4HRT PRN Administration Shortness Of Breath Ascorbic Acid 500 mg 09/19/21 22:00 09/23/21 09:38 Ascorbic Acid 500 Mg Tab PO 500 mg BID ARUN Administration Cholecalciferol 1,000 unit 09/21/21 10:00 09/23/21 09:42 Cholecalciferol (Vit D3) 1000 Unit (25 Mcg) Tab PO 1,000 unit DAILY ARUN Administration Dextrose 0 ml 09/22/21 08:58 Dextrose 10% *Hypoglycemia IV PRN PRN Hypoglycemia Guaifenesin 200 mg 09/23/21 00:13 09/23/21 01:12 Guaifenesin 200 Mg Tab PO 200 mg Q6H PRN Administration Cough Heparin Sodium (Porcine) 5,000 unit 09/19/21 22:00 09/23/21 09:38 Heparin 5,000 Unit/1 Ml Vial SUB-Q 5,000 unit Q12HR ARUN Administration Hydromorphone HCl 0.5 mg 09/19/21 19:48 Hydromorphone 1 Mg/1 Ml Inj IV Q23H PRN Pain , Severe (7-10) Ceftriaxone Sodium 2 gm in 100 mls @ 200 mls/hr 09/19/21 20:00 09/22/21 20:31 Rocephin/Ns 2 Gm/100 Ml IV 09/23/21 20:29 200 mls/hr Q24H ARUN Administration Protocol Insulin Human Lispro 0 unit 09/20/21 01:48 09/23/21 12:15 Insulin Lispro 100 Unit/Ml SUB-Q 3 unit ACHS ARUN Administration Protocol Insulin Human NPH 10 unit 09/22/21 09:00 09/23/21 08:25 Insulin Nph, Human 100 Unit/1 Ml SUB-Q 10 unit QDDIAB ARUN Administration Melatonin 10 mg 09/23/21 22:00 Melatonin 5 Mg Tab PO QHS ARUN Metformin HCl 1,000 mg 09/22/21 09:00 09/23/21 08:21 Metformin Xr 500mg Tab PO 1,000 mg QDDIAB ARUN Administration Metoprolol Succinate 50 mg 09/20/21 20:00 09/23/21 09:38 Metoprolol Succinate Xl 50 Mg Tab PO 50 mg QDAY ARUN Administration Nifedipine 30 mg 09/22/21 10:00 09/23/21 09:39 Nifedipine Xl 30 Mg Tab PO 30 mg QDAY ARUN Administration Ondansetron HCl 4 mg 09/19/21 19:48 Ondansetron 4 Mg/2 Ml Inj IV Q8H PRN Nausea And Vomiting Oxycodone/Acetaminophen 1 tab 09/19/21 19:48 09/23/21 08:25 Oxycodone /Acetaminophen 5-325mg Tab PO 1 tab Q6H PRN Administration Pain, Moderate (4-6) Sodium Chloride 10 ml 09/19/21 22:00 09/23/21 09:39 Sodium Chloride 0.9% 10 Ml Flush Syringe IV 10 ml BID ARUN Administration Sodium Chloride 10 ml 09/19/21 19:48 Sodium Chloride 0.9% 10 Ml Flush Syringe IV PRN PRN LINE FLUSH Zinc Sulfate 220 mg 09/19/21 22:00 09/23/21 09:42 Zinc Sulfate 220 Mg Cap PO 220 mg BID ARUN Administration
[2021-09-23] MEDS: cefTRIAXone/NS 2 GM/100 ML 2 GM/100 ML BAG IV SCH (20:38)
[2021-09-23] MEDS ORDERED: MELATONIN 5 MG TAB PO SCH (22:00)
[2021-09-24] MEDS: ALBUTEROL 2.5 MG/3 ML NEBU IH PRN (09:19)
[2021-09-24] MEDS: CHOLECALCIFEROL (VIT D3) 1000 UNIT (25 mcg) TAB PO SCH (10:08)
[2021-09-24] MEDS: HEPARIN 5,000 UNIT/1 ML VIAL SUB-Q SCH (10:08)
[2021-09-24] MEDS: ZINC SULFATE 220 MG CAP PO SCH (10:08)
[2021-09-24] MEDS: ASCORBIC ACID 500 MG TAB PO SCH (10:08)
[2021-09-24] MEDS: METOPROLOL SUCCINATE XL 50 MG TAB PO SCH (10:08)
[2021-09-24] MEDS: metFORMIN XR 500MG TAB PO SCH (10:10)
[2021-09-24] MEDS: INSULIN LISPRO 100 UNIT/ML SUB-Q SCH ×2 (10:10→13:07)
[2021-09-24] MEDS: INSULIN NPH, HUMAN 100 UNIT/1 ML SUB-Q SCH (10:21)
[2021-09-24] MEDS: NIFEdipine XL 30 MG TAB PO SCH (10:53)
[2021-09-24 13:37] VITALS: BP 151/78
--- NOTE | 2021-09-24 13:48 | Discharge Summary ---
Providers - Providers Date of Admission: 09/19/21 19:48 Date of discharge: 09/24/21 Attending physician: PIERO GARCIA MD 09/20/21 12:36 Physical Therapy Evaluation and Treat [CONS] Stat Comment: Reason For Exam: eval and treat Primary care physician: SAMUEL AGUIRRE Hospitalization Reason for admission: Acute hypoxemic respiratory, community-acquired pneumonia Condition: Stable Pertinent studies: Reviewed. Procedures: None. Hospital course: Patient is a 71-year-old male past medical history of congestive heart failure, insulin-dependent type 2 diabetes mellitus, COPD, hypertension, obesity hypoventilation syndrome, metabolic syndrome, cardiomyopathy status post pacemaker placement, and morbid obesity who presented in the ED due to complaints of shortness of breath, generalized weakness, malaise, body aches, decreased exercise tolerance over the previous 2 days prior to admission. In the ED the patient was found to be hemodynamically stable with a oxygen saturation of 88% with exertion was consistent with acute hypoxemic respiratory failure. Patient's chest x-ray was revealing for bilateral pneumonia. Patient was admitted for management of pneumonia with initiation of pneumonia protocol. The patient was evaluated and found to have unremarkable coronavirus PCR and influenza a/B PCR. The patient was initiated on azithromycin and Rocephin for community-acquired pneumonia. Patient has since been weaned to room air. Patient completed a 5-day course of antibiotics for community-acquired pneumonia. The patient is medically clear for discharge. Disposition: 01 HOME / SELF CARE / HOMELESS Final Discharge Diagnosis (Prints w/discharge instructions): Acute hypoxemic respiratory failure, community-acquired pneumonia, metabolic syndrome, obesity hypoventilation syndrome, hypertension, hyperlipidemia, history of congestive heart failure, insulin-dependent type 2 diabetes mellitus with hyperglycemia, microcytic anemia, mild protein caloric malnutrition, morbid obesity Time spent for discharge: 45 min Core Measure Documentation - Palliative Care Palliative Care/ Comfort Measures: Not Applicable - Core Measures Any of the following diagnoses?: none Exam - Constitutional Vitals: Temp Pulse Resp BP Pulse Ox 98.9 F 71 24 151/78 97 09/24/21 11:40 09/24/21 11:40 09/24/21 11:40 09/24/21 11:40 09/24/21 11:40 General appearance: Present: no acute distress, obese - EENT Eyes: Present: PERRL, EOM intact ENT: hearing intact, clear oral mucosa, dentition normal - Neck Neck: Present: supple, normal ROM - Respiratory Respiratory effort: normal - Cardiovascular Rhythm: regular Heart Sounds: Present: S1 & S2 - Extremities Extremities: no ischemia, pulses intact, pulses symmetrical, No edema, normal temperature, normal color, Full ROM Peripheral Pulses: within normal limits - Abdominal General gastrointestinal: Present: soft, non-tender, non-distended, normal bowel sounds Male genitourinary: Present: deferred - Rectal Rectal Exam: deferred - Integumentary Integumentary: Present: clear, warm, dry - Musculoskeletal Musculoskeletal: strength equal bilaterally - Psychiatric Psychiatric: appropriate mood/affect, intact judgment & insight, memory intact, cooperative - Neurologic Neurologic: CNII-XII intact, moves all extremities Plan Activity: no restrictions Diet: low salt, diabetic Additional Instructions: Patient is a 71-year-old male past medical history of congestive heart failure, insulin-dependent type 2 diabetes mellitus, COPD, hypertension, obesity hypoventilation syndrome, metabolic syndrome, cardiomyopathy status post pacemaker placement, and morbid obesity who presented in the ED due to complaints of shortness of breath, generalized weakness, malaise, body aches, decreased exercise tolerance over the previous 2 days prior to admission. In the ED the patient was found to be hemodynamically stable with a oxygen saturation of 88% with exertion was consistent with acute hypoxemic respiratory failure. Patient's chest x-ray was revealing for bilateral pneumonia. Patient was admitted for management of pneumonia with initiation of pneumonia protocol. The patient was evaluated and found to have unremarkable coronavirus PCR and influenza a/B PCR. The patient was initiated on azithromycin and Rocephin for community-acquired pneumonia. Patient has since been weaned to room air. Patient completed a 5-day course of antibiotics for community-acquired pneumonia. The patient is medically clear for discharge. Care Plan Goals: Patient is medically clear for discharge. Assessment: Patient is a 71-year-old male past medical history of congestive heart failure, insulin-dependent type 2 diabetes mellitus, COPD, hypertension, obesity hypoventilation syndrome, metabolic syndrome, cardiomyopathy status post pacemaker placement, and morbid obesity who presented in the ED due to complaints of shortness of breath, generalized weakness, malaise, body aches, decreased exercise tolerance over the previous 2 days prior to admission. In the ED the patient was found to be hemodynamically stable with a oxygen saturation of 88% with exertion was consistent with acute hypoxemic respiratory failure. Patient's chest x-ray was revealing for bilateral pneumonia. Patient was admitted for management of pneumonia with initiation of pneumonia protocol. The patient was evaluated and found to have unremarkable coronavirus PCR and influenza a/B PCR. The patient was initiated on azithromycin and Rocephin for community-acquired pneumonia. Patient has since been weaned to room air. Patient completed a 5-day course of antibiotics for community-acquired pneumonia. The patient is medically clear for discharge. Follow up with: SAMUEL AGUIRRE MD [Primary Care Provider] - 7 Days Prescriptions: Melatonin [Melatonin 5MG TAB] 10 mg PO QHS #30 tablet Metoprolol Xl [Metoprolol SUCCINATE ER TAB] 50 mg PO QDAY #30 tablet NIFEdipine XL [Procardia Xl] 30 mg PO QDAY #30 tablet
== END 2021-09-24 16:55 | disposition home health service (06) | DRG 193 ==
LOC: ED 18:00 → 3A 19:48 → MERGE 19:48 → 3A 09-20 13:54
PROVIDERS: ADMIT Internal Medicine; ATTEND Student in an Organized Health Care Education/Training Program
DX: J18.9 Pneumonia, unspecified organism (principal); J96.01 Acute respiratory failure with hypoxia; E66.2 Morbid (severe) obesity with alveolar hypoventilation; J44.0 Chronic obstructive pulmonary disease with (acute) lower respiratory infection; I42.9 Cardiomyopathy, unspecified; E44.1 Mild protein-calorie malnutrition; Z20.822 Contact with and (suspected) exposure to COVID-19; I50.9 Heart failure, unspecified; Z87.891 Personal history of nicotine dependence; I11.0 Hypertensive heart disease with heart failure; Z68.39 Body mass index [BMI] 39.0-39.9, adult; E88.81 Metabolic syndrome and other insulin resistance; Z95.0 Presence of cardiac pacemaker; E11.65 Type 2 diabetes mellitus with hyperglycemia; D50.9 Iron deficiency anemia, unspecified; Z71.3 Dietary counseling and surveillance
CPT/HCPCS: 36415; 71045; 80048; 80053; 82962; 83036; 83550; 83880; 84484; 85007; 85025; 85027; 87040; 93005; 94640; 94760; G0378; J2354; Q9967; J0456; J0696; J1644; J1815; J2920; U0003